=== PATIENT | female | born 1960 | race Caucasian/White ===

== ENCOUNTER 2019-12-18 10:15 | Outpatient (CLI) | payer BC, SELFPAY ==
--- NOTE | ~2019-12-18 | DEXA_ITS ---
Bone Density Report Name: Mariela Wise Age: 59 Sex: Female Ethnicity: White Date of : 1960 Indication: postmenopausal; prior fracture; hysterectomy; Referring Provider: Josiane, Arnol Sanchez Study: Bone densitometry was performed. Exam Date: December 18, 2019 Accession number: [id number] Bone Density: Region BMD T-score Z-score Classification AP Spine (L1-L4) 1.259 1.9 3.4 Normal Femoral Neck (Left) 0.821 -0.3 1.1 Normal Total Hip (Left) 1.200 2.1 3.1 Normal Total Hip Bilateral Avg 1.196 2.0 3.0 Normal Femoral Neck (Right) 0.911 0.6 1.9 Normal Total Hip (Right) 1.190 2.0 3.0 Normal World Health Organization criteria for BMD impression classify patients as: Normal (T-score at or above -1.0), Osteopenia (T-score between -1.0 and -2.5), or Osteoporosis (T-score at or below -2.5). 10-year Fracture Risk: FRAX not reported because: All T-scores for Spine Total, Hip Total, Femoral Neck at or above -1.0 Previous Exams: Region Exam Age BMD T-score BMD Change BMD Change Date g/cm2 vs Baseline vs Previous AP Spine(L1-L4) 12/18/2019 59 1.259 1.9 -0.031(-2.4%)* -0.031(-2.4%)* 06/11/2013 53 1.290 2.2 Total Hip(Left) 12/18/2019 59 1.200 2.1 -0.153(-11.3%) -0.153(-11.3%) 06/11/2013 53 1.353 3.4 Total Hip(Right) 12/18/2019 59 1.190 2.0 -0.141(-10.6%) -0.141(-10.6%) 06/11/2013 53 1.331 3.2 *Denotes significance at 95% confidence level, LSC for AP Spine = 0.022 g/cm2, LSC for Total Hip = 0.027 g/cm2 Clinical Information Provided by Patient: Has had a low trauma fracture Has used the following medications: Vitamin D Has the following medical conditions: Hysterectomy Patient maximum height was 67 Menopause Age: 52 No regular weight bearing exercise Drinks caffeinated beverages Onset of menses at age 11 Number of children 2 Impression: The patient has normal bone mass. The patient has risk factors, including: previous fracture. The BMD for the AP Spine(L1-L4) decreased, changing by -2.4% since the last DXA exam. The BMD for the Total Hip(Left) decreased, changing by -11.3% since the last DXA exam. The BMD for the Total Hip(Right) decreased, changing by -10.6% since the last DXA exam. Discussion: BONE DENSITY IS ABOVE THE MINIMUM DESIRABLE LEVEL AT ALL SKELETAL SITES TESTED. This patient?s bone mineral density is above the minimum desirable level (T-score -1.0 or better) at all sites measured. The patient should follow a healthful
--- NOTE | ~2019-12-18 | MM_ITS ---
EXAMINATION: MM screening qing BI w kandace HISTORY: Screening mammogram TECHNIQUE: Craniocaudal and mediolateral oblique 3-D tomosynthesis images were obtained and synthetic 2-D images were generated. CAD analysis was submitted and interpreted. COMPARISON: 03/14/2018, 03/05/2017, 06/02/2015 bilateral digital screening mammogram examinations BREAST PARENCHYMAL COMPOSITION: The breasts are almost entirely fatty. FINDINGS: There is no evidence of suspicious mass, calcification, or architectural distortion to sugg est malignancy in either breast. There has been no suspicious interval change. IMPRESSION: 1. No mammographic evidence of malignancy. 2. Recommend routine screening mammography in one year. BI-RADS Category 1: Negative Reviewed, dictated and finalized at location A.
== END 2019-12-18 10:16 | disposition home or self-care (01) ==
LOC: ANHIMG 10:17
PROVIDERS: PCP Internal Medicine; Visit Provider Internal Medicine
DX: Z12.31 Encounter for screening mammogram for malignant neoplasm of breast (principal); M81.0 Age-related osteoporosis without current pathological fracture
CPT/HCPCS: 77063; 77067; 77080

== ENCOUNTER 2021-06-30 10:18 | Outpatient (CLI) | payer BC, SELFPAY ==
--- NOTE | ~2021-06-30 | MM_ITS ---
EXAMINATION: MM screening qing BI w kandace HISTORY: Screening mammogram TECHNIQUE: Craniocaudal and mediolateral oblique 3-D tomosynthesis images were obtained and synthetic 2-D images were generated. CAD analysis was submitted and interpreted. COMPARISON: 12/18/2019, 03/14/2018, 03/05/2017 bilateral screening mammogram examinations BREAST PARENCHYMAL COMPOSITION: The breasts are almost entirely fatty. FINDINGS: There is no evidence of suspicious mass, calcification, or architectural distortion to sugg est malignancy in either breast. There has been no suspicious interval change. IMPRESSION: 1. No mammographic evidence of malignancy. 2. Recommend routine screening mammography in one year. BI-RADS Category 1: Negative Reviewed, dictated and finalized at location A.
== END 2021-06-30 10:19 | disposition home or self-care (01) ==
LOC: ANHIMG 10:20
PROVIDERS: PCP Internal Medicine; Visit Provider Internal Medicine
DX: Z12.31 Encounter for screening mammogram for malignant neoplasm of breast (principal)
CPT/HCPCS: 77063; 77067

== ENCOUNTER 2024-07-15 13:42 | Outpatient (CLI) | payer MEDICARE, SELFPAY ==
--- NOTE | ~2024-07-15 | DEXA_ITS ---
Bone Density Report Name: ANALIA WATTS Age: 64 Sex: Female Ethnicity: White Date of : 1960 Indication: postmenopausal; screening for osteoporosis; height loss; hysterectomy; Referring Provider: WESTON, BASIL Sanchez Study: Bone densitometry was performed. Exam Date: July 15, 2024 Accession number: [id number] Bone Density: Region BMD T-score Z-score Classification AP Spine(L2, L3, L4) 1.178 0.9 2.7 Normal World Health Organization criteria for BMD impression classify patients as: Normal (T-score at or above -1.0), Osteopenia (T-score between -1.0 and -2.5), or Osteoporosis (T-score at or below -2.5). Previous Exams: Region Exam Age BMD T-score BMD Change BMD Change Date g/cm2 vs Baseline vs Previous AP Spine (L2-L4) 07/15/2024 64 1.178 0.9 -0.081 (-6.5%) -0.081 (-6.5%) 12/18/2019 59 1.259 1.6 *Denotes significance at 95% confidence level, LSC for AP Spine = 0.022 g/cm2 # Denotes dissimilar scan types or analysis methods Clinical Information Provided by Patient: Has used the following medications: Vitamin D Has the following medical conditions: Hysterectomy Patient maximum height was 67 Menopause Age: 52 Drinks caffeinated beverages Onset of menses at age 11 Number of children 2 Impression: The patient has normal bone mass. No significant bone loss was observed. Discussion: LOW RISK OF FRACTURE; BONE DENSITY IS WELL ABOVE THE MINIMUM DESIRABLE LEVEL AND ABOVE AVERAGE FOR AGE AND SEX AT ALL SKELETAL SITES TESTED. This person's bone density is above expected limits for age and sex. This is rarely clinically significant, but should be pursued if there are significant musculoskeletal complaints. The patient should follow a healthful lifestyle (good nutrition with adequate calcium and vitamin D, and appropriate weight-bearing exercise). Follow-Up: Consider repeating this study in 5 years or sooner if there is some new clinical indication. Reported by: TRUONG on 07/15/2024 2:55:00 PM. Reviewed, dictated and finalized at location [facility]
--- NOTE | ~2024-07-15 | MM_ITS ---
EXAMINATION: MM screening qing BI w kandace HISTORY: Screening TECHNIQUE: Craniocaudal and mediolateral oblique 3-D tomosynthesis images were obtained and synthetic 2-D images were generated. CAD analysis was submitted and interpreted. COMPARISON: Comparison to multiple prior studies sequentially, with oldest reviewed study dated 06/02. BREAST PARENCHYMAL COMPOSITION: Not Dense. The breasts are almost entirely fatty. FINDINGS: There is no evidence of suspicious mass, calcification, or architectural distortion to sugg est malignancy in either breast. There has been no suspicious interval change. IMPRESSION: 1. No mammographic evidence of malignancy. 2. Recommend routine screening mammography in one year. BI-RADS Category 1: Negative Reviewed, dictated and finalized at location A.
--- OUTSIDE RECORDS SUMMARY | 2024-07-15 14:07 | XMS_ITS ---
Author Organization [facility] Address [address] [place] [address] Care Team Providers Care Assistant Professor Of Biochemistry Name Role Phone Arnol Joshua MD Primary Care Provider Arnol Carroll MD Unavailable [phone] Active Problems Problem Noted Date Diagnosed Date Spinal stenosis, lumbar arturo on, with neurogenic claudication 06/18/2024 Spondylolisthesis of lumbar region 06/18/2024 Metabolic dysfunction-associated steatohepatitis (MASH) 05/19/2024 Weight loss 04/17/2023 Pannus, abdominal 04/17/2023 H/O lipoma 04/17/2023 Metabolic syndrome 03/17/2023 Assessment & Plan (03/17/2023 11:50 AM SCHOOL LIBRARIAN): Diet and exercise as the the cornerstone of the treatment of insulin resistance/metabolic syndrome to prevention in to full blown diabetes was discussed with the patient. I encouraged the patient to continue working on low carb diet, probably incorporating 15 to 30 g of carbs with meals. Also continue daily aerobic and or resistant exercise Her blood pressure is well-controlled with current regimen noon Her hypertriglyceridemia also is adequately controlled now, with lipid profile showing mostly hypercholesterolemia for which the patient has been started on statin therapy with atorvastatin . Will check for hypercortisolism with a 1 mg dexamethasone suppression test The patient might benefit from GLP 1 analog for weight loss although I explained to the patient that this is not covered by insurance usually. I sent a prescription for Mounjaro Lipoma 02/20/2023 Assessment & Plan (02/20/2023 3:34 PM SCHOOL LIBRARIAN): Given the symptomatic nature we will set the patient up for resection. I have discussed with her doing this in the OR. She however would prefer to do this in the office. I have discussed with the patient that the more superior lesion that is more superficial and easily felt would not be a problem. My concern is for the deeper lesion as it is extending down to the muscle that there may be more bleeding were difficulty finding it with her being awake in the office. If this would be the case we may have to stop and still end up doing it in the OR. She is in understanding but still would like to try it in the office. We will set her up for this. Aftercare following left hip joint replacement s urgery 03/25/2022 Stage 3b chronic kidney disease 03/05/2022 High serum ferritin 02/26/2022 Morbid (severe) obesity due to excess calories 0 09/18/2021 Aftercare following right hip joint replacement surgery 08/07/2021 Preop exam for internal medicine 07/13/2021 Milia 06/13/2021 Lumbar facet arthropathy 10/18/2020 Sacroiliitis 10/18/2020 Insomnia secondary to chronic pain 10/18/2020 Chronic right-sided low back pain without sciati ca 10/18/2020 EDUAR (obstructive sleep apnea) 10/06/2020 Solar lentiginosis 07/26/2020 Ingrown hair 07/26/2020 Multiple benign melanocytic nevi of upper and lower extremities and trunk 07/26/2020 Neoplasm of uncertain behavior of skin Other seborrheic dermatitis 07/26/2020 Problems with swallowing and mastication 020 Overview (05/25/2019): Added automatically from request for surgery [id number] Problems with swallowing and mastication 020 Overview (05/19/2024): Added automatically from request for surgery [id number] Added automatically from request for surgery [id number] Hx of malignant melanoma 02/22/2019 Cervical radiculopathy 11/06/2018 Lumbar radiculopathy 11/06/2018 Discogenic low back pain 01/21/2018 DDD (degenerative disc disease), lumbar 01/22/20 18 It band syndrome, right 12/30/2017 Multiple nevi 08/05/2017 Warts 08/05/2017 Benign hypertension 07/10/2015 Overview (07/19/2016): BENIGN HYPERTENSION Assessment & Plan (07/03/2023 5:14 PM CDT): Recommend DASH diet, heart-healthy lifestyle, exercise. Discussed the risks of hypertension. Assessment & Plan (07/25/2020 9:50 AM CDT): Recommend DASH diet, heart-healthy lifestyle, exercise. Discussed the risks of hypertension. Assessment & Plan (08/13/2019 8:37 AM CDT): Recommend DASH diet, heart healthy lifestyle, exercise. Discussed the risks of hypertension. Benign hypertension 07/10/2015 Overview (05/19/2024): BENIGN HYPERTENSION BENIGN HYPERTENSION Last Assessment & Plan: Recommend DASH diet, heart-healthy lifestyle, exercise. Discussed the risks of hypertension. Actinic keratosis 01/31/2015 Personal history of other malignant neoplasm of skin 01/31/2015 Arthralgia of hip 09/14/2014 Overview (07/19/2016): Hip pain Arthralgia of hip 09/14/2014 Overview (05/19/2024): Hip pain Hip pain Personal history of malignant melanoma of skin 1 Multiple-type hyperlipidemia 08/28/2013 Overview (07/18/2016): MIXED HYPERLIPIDEMIA Anxiety state 08/28/2013 Overview (07/19/2016): ANXIETY STATE NOS Malignant melanoma of skin 08/28/2013 Overview (07/19/2016): MALIG MELANOMA SKIN NOS Anxiety state 08/28/2013 Overview (05/19/2024): ANXIETY STATE NOS ANXIETY STATE NOS Malignant melanoma of skin 08/28/2013 Overview (05/19/2024): MALIG MELANOMA SKIN NOS MALIG MELANOMA SKIN NOS Multiple-type hyperlipidemia 08/28/2013 Overview (05/19/2024): MIXED HYPERLIPIDEMIA MIXED HYPERLIPIDEMIA Menopause present 08/07/2012 Overview (07/19/2016): Menopause Spinal stenosis of lumbar region 01/27/2012 Overview (07/19/2016): Lumbar spinal stenosis Assessment & Plan (11/15/2016 4:12 PM CDT): Patient prefers no surgical intervention if not absolutely necessary. I recommend physical therapy to eval and treat. Follow up here in 6-8 weeks with absolutely any change in, worsening, or non improvement in condition. Further direction MRI results. Vitamin D deficiency 01/27/2012 Overview (07/19/2016): Hypovitaminosis D Irritable bowel syndrome 01/27/2012 Overview (07/19/2016): IRRITABLE BOWEL SYNDROME Irritable bowel syndrome 01/27/2012 Overview (05/19/2024): IRRITABLE BOWEL SYNDROME IRRITABLE BOWEL SYNDROME Vitamin D deficiency 01/27/2012 Overview (05/19/2024): Hypovitaminosis D Hypovitaminosis D Morbid obesity 12/04/2011 Rash and nonspecific skin eruption 07/31/2011 Current Treatment and Therapy Plans No current plan information found. Past Treatment and Therapy Plans No past plan information found. Lifetime Dose Tracking * Chemical Lifetime Dose Automatic Entry Manual Entr y Fluoro Time 1.273 minutes 1.273 minutes 0 minutes Air kerma at the reference point (Ka,r) 23.636 mGy 2 3.636 mGy 0 mGy Resolved Problems Problem Noted Date Diagnosed Date Resolved Date Primary osteoarthritis of left hip 02/21/2022 03/25/2022 Overview (02/21/2022): Added automatically from request for surgery [id number] Primary osteoarthritis of right hip 07/13/2021 08/07/2021 Overview (07/13/2021): Added automatically from request for surgery [id number] Primary osteoarthritis of hips, bilateral 06/18/2021 03/25/2022 Sleep apnea 01/10/2021 07/13/2021 Assessment & Plan (01/10/2021 10:21 AM CDT): Consider Weight loss, Oral appliance Consider Septoplasty and inferior turbinate reduction if no improvement with conservative therapies Acute non-recurrent maxillary sinusitis 04/25/2017 02/19/2018 Palpable mass of lower back 11/15/2016 02/19/2018 Assessment & Plan (11/15/2016 4:12 PM CDT): Proceed with MRI of the lumbar spine. Further direction pending test results. Patient should anticipate a call from me within 3 days of having testing completed. She is to contact the office if she has not heard from me within this time frame. Anxiety 09/14/2014 02/18/2017 Overview (07/19/2016): Anxiety Spinal stenosis 09/14/2014 02/18/2017 Overview (07/19/2016): Spinal stenosis Hypertension 09/14/2014 02/18/2017 Overview (07/19/2016): Hypertension
--- OUTSIDE RECORDS SUMMARY | 2024-07-15 14:07 | XMS_ITS | Encounter Summary ---
Author Organization [facility] Address [address] [place] [address] Phone Care Team Providers Care County Health Officer Name Role Phone Arnol Joshua MD Primary Care Provider Arnol Carroll MD Unavailable [phone] Anyi Jasso MA Unavailable [phone] Encounter Details Date Type Department Care Team (Latest Contact Info) Description 07/25/2020 Orders Only [facility] Scanning, Provider Social History Tobacco Use Types Packs/Day Years Used Date Smoking Tobacco: Never Smokeless Tobacco: Never Alcohol Use Standard Drinks/Week Comments No 0 (1 standard drink = 0.6 oz pur e alcohol) Rare PHQ-2 Answer Date Recorded PHQ-2 Total Score (If total score is 3 or more points, staff should administer the PHQ-9) 0 07/25/2020 Comments No Sex and Gender Information Value Date Recorded Sex Assigned at Not on file Legal Sex Female 5:22 PM REHABILITATION DIRECTOR Gender Identity Not on file Sexual Orientation Straight 05/19/2024 11 :57 AM REHABILITATION DIRECTOR documented as of this encounter Plan of Treatment Upcoming Encounters Date Type Department Care Team (Latest Contact Info) Description 07/21/2024 8:30 AM CDT Hospital Encounter [facility] Operating Room [address] [place] [address] Eddy Sanders MD [address] [facility] [address]6B[address] [place] [address] 07/21/2024 8:30 AM CDT Anesthesia Event [facility] Operating [address] [place] [id number] Sukh Calloway MD [address] [place] [address] 07/21/2024 8:30 AM CDT - 07/21/2024 12:05 PM CDT Surgery [facility] Operating Room [address] [place] [address] Eddy Sanders MD [address] [facility] [address] [place] [address] LUMBAR DECOMPRESSION/DISCECT RENETTA - INTERLAMINAR, Left-Sided L4-L5 Unilateral Laminotomy for Bilateral Decompression Scheduled Orders Name Type Priority Associated Diagnoses Orde r Schedule SCAN - CARDIOLOGY Cardiac Services O rdered: 07/25/2020 Scheduled Procedures Name Priority Associated Diagnoses Date/Ti me LUMBAR DECOMPRESSION/DISCECTOMY - INTERLAMINAR Spinal stenosis, lumbar region, with neurogenic claudication Spondylolisthesis of lumbar region 07/21/2024 8:30 AM CDT documented as of this encounter Visit Diagnoses Not on filedocumented in this encounter Care Teams County Health Officer Relationship Specialty Start Date End Date Arnol Joshua MD PCP - General 01/02/15 Arnol Carroll MD Surgeon Orthopedic Surgery 07/25/21 Anyi Jasso MA [address] [facility] [address] [place] [address] ACO Care Rides Supervisor 03/22/22 03/25/22 documented as of this encounter
--- OUTSIDE RECORDS SUMMARY | 2024-07-15 14:07 | XMS_ITS | Encounter Summary ---
Author Organization [facility] Healthcare Address [address] [place] [address] Care Team Providers Care Biochemistry Specialist Name Role Phone Arnol Joshua MD Primary Care Provider Arnol Carroll MD Unavailable [phone] Reason for Visit * Reason Onset Date Comments Medical Records Request 07/13/2024 Encounter Details Date Type Department Care Team (Late st Contact Info) Description 07/13/2024 Telephone [facility] Medical [facility] Primary Care at [address] [place] [address] Arnol Joshua MD [address] [place] [address] [address] [place] [address] Medical Records Request Social History Tobacco Use Types Packs/Day Years Used Date Smoking Tobacco: Never Smokeless Tobacco: Never Alcohol Use Standard Drinks/Week Comments No 0 (1 standard drink = 0.6 oz pur e alcohol) Rare AUDIT-C Answer Date Recorded Q1: How often do you have a drink containing alcohol? Never 07/09/2024 Q2: How many drinks containi ng alcohol do you have on a typical day when you are drinking? Patient does not drink Q3: How often do you have si x or more drinks on one occasion? Never 07/09/2024 PHQ-2 Answer Date Recorded PHQ-2 Total Score (If total score is 3 or more points, staff should administer the PHQ-9) 0 05/19/2024 Personal Safety Answer Date Recorded Have you ever been in or are you currently in a harmful physical or emotional relationship or is someone making you feel afraid or unsafe? Denies 07/09/2024 Comments No Sex and Gender Information Value Date Recorded Sex Assigned at Not on file Legal Sex Female 5:22 PM STAVE CUTTER Gender Identity Not on file Sexual Orientation Straight 05/19/2024 11 :57 AM STAVE CUTTER documented as of this encounter Miscellaneous Notes * Telephone Encounter - Dea Penaloza - 07/13/2024 3:56 PM CDT Orders faxed to provided number. * Telephone Encounter - Tiana Sutton CLT - 07/13/2024 3:33 PM CDT Per Michelle at [facility] pre-arrival, she needs copies of the orders for Screening mamm and Dexa. Sending to referrals. * Telephone Encounter - Eneida Chamorro - 07/13/2024 3:26 PM CDT Medical Records Request Request Type: Records Request Practice Will Complete What records are being requested:Bone Density and Screening Mammogram results Who will the records be sent to (if being sent to another doctor, list the doctor's name and specialty)? [facility] Radiology Date Needed: today if possible Delivery Method: Fax Fax number to use for return of records: [phone] Additional Comments/Concerns: Michelle with [facility] stated that they need these results as soon as possible. Patient has an appointment with them tomorrow. Does the message need to be routed? Yes-Action Needed documented in this encounter Plan of Treatment Upcoming Encounters Date Type Department Care Team (Latest Contact Info) Description 07/21/2024 8:30 AM CDT Hospital Encounter [facility] Operating Room [address] [place] [address] Eddy Sanders MD [address] [facility] [address]6B[address] [place] [address] 07/21/2024 8:30 AM CDT Anesthesia Event [facility] Operating Room [address] [place] [phone] Sukh Calloway MD [address] [place] [address] 07/21/2024 8:30 AM CDT - 07/21/2024 12:05 PM CDT Surgery [facility] Operating Room [address] [place] [phone] Eddy Sanders MD [address] [facility] /[address] [place] [address] LUMBAR DECOMPRESSION/DISCECT RENETTA - INTERLAMINAR, Left-Sided L4-L5 Unilateral Laminotomy for Bilateral Decompression Scheduled Procedures Name Priority Associated Diagnoses Date/Ti me LUMBAR DECOMPRESSION/DISCECTOMY - INTERLAMINAR Spinal stenosis, lumbar region, with neurogenic claudication Spondylolisthesis of lumbar region 07/21/2024 8:30 AM CDT documented as of this encounter Goals Goal Patient Goal Type Associated Problems Recent Progress Patient-Stated? Author BH-Pain Behavioral Health Improving( 2:38 PM CDT) Rehana Astudillo, RN Note: Patient will establish a comfort-function goal and identify the pain level that will allow the patient to perform desired activities and achieve an acceptable quality of life. documented as of this encounter Visit Diagnoses Not on filedocumented in this encounter Care Teams Biochemistry Specialist Relationship Specialty Start Date End Date Arnol Joshua MD PCP - General 01/02/15 Arnol Carroll MD Surgeon Orthopedic Surgery 07/25/21 documented as of this encounter
--- OUTSIDE RECORDS SUMMARY | 2024-07-15 14:07 | XMS_ITS | Encounter Summary ---
Author Organization [facility] Healthcare Address [address] [place] [address] Care Team Providers Care Carder Blankets Name Role Phone Arnol Joshua MD Primary Care Provider Arnol Carroll MD Unavailable [phone] Encounter Details Date Type Department Care Team (Late st Contact Info) Description 07/13/2024 Results Follow-Up [facility] Medical [facility] Primary Care at [place] [address] [facility] [address] [place] [address] Arnol Joshua MD [address] [place] [address] [address] [place], [place] [id number] Social History Tobacco Use Types Packs/Day Years [...] on file Legal Sex Female 5:22 PM HEARING CARE PRACTITIONER Gender Identity Not on file Sexual Orientation Straight 05/19/2024 11 :57 AM HEARING CARE PRACTITIONER documented as of this encounter Plan of Treatment Upcoming Encounters Date Type Department Care Team (Latest Contact Info) Description 07/21/2024 8:30 AM CDT Hospital Encounter [facility] Operating Room [address] [place] [address] Eddy Sanders MD [address] [facility] [place] [address] 07/21/2024 8:30 AM CDT Anesthesia Event [facility] Operating Room [address] [place] [address] Sukh Calloway MD [address] [place] [address] 07/21/2024 8:30 AM CDT - 07/21/2024 12:05 PM CDT Surgery [facility] Operating Room [address] [place] [address] Eddy Sanders MD [address] [place] [place] [address] LUMBAR DECOMPRESSION/DISCECT RENETTA - INTERLAMINAR, Left-Sided L4-L5 [...] on filedocumented in this encounter Care Teams Carder Blankets Relationship Specialty Start Date End Date Arnol Joshua MD PCP - General 01/02/15 Arnol Carroll MD Surgeon Orthopedic Surgery 07/25/21 documented as of this encounter
--- OUTSIDE RECORDS SUMMARY | 2024-07-15 14:07 | XMS_ITS | Continuity of Care Document ---
Author Organization [facility] Address [address] [place] [address] [place] [address] Phone Care Team Providers Care Agriculture Professor Name Role Phone Harris Ortiz MD Unavailable Unavailable Allergies, Adverse Reactions, Alerts Substance Reaction Status Criticality No Known Allergies Active No Inform ation Medications Medication Instructions Dosage Effective Dates (start - stop) Status Comments metoprolol succinate ER 50 mg tablet,extended release 24 hr take 1 tablet by oral route every day 50 MG - Active lorazepam 0.5 mg tablet take 2 tablet by oral route 3 times every day as needed 1 MG - Active Procedures Procedure Date Eye Exam, New Patient Advance Directives Directive Yes / No Effective Date File Name No Information Encounters Encounter Description Practice Location Reason(s) For Visit Diagnoses Date Provider Providers Copied on Encounter [facility], [address] [place] [address] [address], [place], [place], [id number], [place] tel:[phone] [facility] Professional floaters (chief complaint) Punctate keratitis of both eyesNuclear senile cataract of both eyesOcular histoplasmosis syndrome of left eyeBlepharocha lasis, rightBlepharoc halasis, left Oct-2 3-201 5 [facility] Iglesias. [address] [facility] [place], [place], [id number], [place]. tel:[phone] Referring Provider: Harris Felix, [address], [place], [address] . tel:[phone] Family History Family Member Type Diagnosis Age At Onset Father Problem (finding) diabetes mellitus type 2 Payers Payer name Insurance type Covered green party ID Bear gates(s) BCBS MD Out Of State [id number] Social History Type Description Quantity Date Captured Comments Alcohol Use Details No Caffeine Use Details Tobacco Use Status No Information Smoking Status Never smoker Non-Smoking Tobacco Use Details : No Details Available : No Details Available Sex Female Chief Complaint And Reason For Visit From encounter dated '02/03/2015 14:45'. floaters (chief complaint). Description: The 54 year old female presents for a complete exam. Patient c/o floaters OS (long time) and OU [place] alot. Reason For Referral Reason For Referral No Information History Of Present Illness Encounter Date Complaint History Of Prese nt Illness floaters The 54 year old female presents for a complete exam. Patient c/o floaters OS (long time) and OU [place] alot. Functional Status Date Functional Assessmen t No Information Instructions Date Instruction Additional Infor florentin Impression/Plan - Hx of HBP; well controlled. Discussed Blepharochalasis OU in detail with vision; not affecting vision. Discussed SPK OU and the use of ATs BID OU for treatment. Cataract diagnosis discussed in detail with pt. No treatment for cataracts currently recommended. The patient will monitor vision changes and contact us with any decrease in vision. 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 No treatment required. Will continue to monitor. RTC in 1 year for a complete exam. Follow up - RTC in 1 year for a complete exam. Assessments Type Assessment Date assessment Punctate keratitis of both eyes assessment Nuclear senile cataract of both eyes assessment Ocular histoplasmosis syndrome o f left eye assessment Blepharochalasis, right 015 assessment Blepharochalasis, left 15 Patient Care Teams Name Effective Dates (start - stop) Status Members No Information
--- OUTSIDE RECORDS SUMMARY | 2024-07-15 14:07 | XMS_ITS | Clinical Summary ---
Author Organization [facility] Address [address] [place] [address] Care Team Providers Care Counter Top Maker Name Role Phone Arnol Joshua MD Primary Care Provider Arnol Carroll MD Unavailable [phone] Allergies Active Allergy Reactions Criticality Noted Date Comments Cefazolin Vomiting Low 07/25/2021 Pt states ALL antibiotics make her nauseated when taken by mouth, unsure of IV antibiotics, states takes z-pack only when taking abx's orally at home. Nitrofurantoin Nausea & Vomiting Low 07/03/2023 Tetanus Toxoid, Adsorbed Unknown High Breathing problems. Was in ICU. Tetanus Vaccines And Toxoid Tissue Adhesive Itching Medium 04/17/2023 Dermabond Medications carvediloL (COREG) 6.25 mg tablet TAKE 1 TABLET BY MOUTH TWICE DAILY WITH MEALS 200 tablet 1 01/31/20 24 Active Additional Information Patient taking differently:6.25 mg oral2 times daily with meals (bkfst, dinner), Indications: hypertension, Informant: Self, Reported on 07/09/2024 amLODIPine (NORVASC) 2.5 mg tablet Take 1 tablet by mouth once daily 90 tablet 1 03/15/20 24 Active Additional Information Patient taking differently:2.5 mg oralEvery morning, Indications: hypertension, Informant: Self, Reported on 07/09/2024 benazepriL (LOTENSIN) 40 mg tablet Take 1 tablet by mouth once daily 90 tablet 1 05/25/19 25 Active Additional Information Patient taking differently:40 mg oralEvery morning, Indications: hypertension, Informant: Self, Reported on 07/09/2024 QUEtiapine (SEROquel) 25 mg tablet Take 1 tablet by mouth nightly 100 tablet 06/28/19 Active Additional Information Patient taking differently:25 mg oral Nightly,Indications: sleep, Informant: Self, Reported on 07/09/2024 triamterene-h ydroCHLOROthi azide 37.5-25 mg per tablet/capsul e TAKE 1 TABLET BY MOUTH ONCE DAILY TO LOWER BLOOD PRESSURE 90 tablet 1 07/02/19 Active Additional Information Patient taking differently: 0.5 tablet/capsule oral Every morning, Indications: HTN, Informant: Self, Reported on 07/09/2024 mupirocin (BACTROBAN) 2 % ointment Place small amount of ointment in each nostril with a q-tip twice daily for 5 days prior to surgery 22 g 07/02/19 Active Additional Information Patient taking differently: each nostril 2 times daily, Place small amount of ointment in each nostril with a q-tip twice daily for 5 days prior to surgeryDOS 07/21/24, Informant: Self, Reported on 07/09/2024 UNABLE TO FIND Take 1 each by mouth every morning Med Name: Neuropathy Support supplement Active MAGNESIUM ORALIndicatio ns:supplement Take 1 tablet/capsule by mouth every morning Magnesium Biglycinate Active QUEtiapine (SEROquel) 25 mg tablet Take 1 tablet (25 mg total) by mouth nightly 30 tablet 11 07/07/19 24 025 Discontinued triamterene-h ydroCHLOROthi azide 37.5-25 mg per tablet TAKE 1 TABLET BY MOUTH ONCE DAILY TO LOWER BLOOD PRESSURE 90 tablet 12/09/19 24 025 Discontinued atorvastatin (LIPITOR) 20 mg tablet TAKE 1 TABLET BY MOUTH ONCE DAILY TO LOWER BAD CHOLESTEROL 90 tablet 03/02/20 24 025 Discontinued atorvastatin (LIPITOR) 20 mg tablet TAKE 1 TABLET BY MOUTH ONCE DAILY TO LOWER BAD CHOLESTEROL 90 tablet 06/17/19 25 025 Discontinued(Th erapy completed) Active Problems Problem Noted Date Diagnosed Date Spinal stenosis, lumbar arturo on, with neurogenic claudication 06/18/2024 Spondylolisthesis of lumbar region 06/18/2024 Metabolic dysfunction-associated steatohepatitis (MASH) 05/19/2024 Weight loss 04/17/2023 Pannus, abdominal 04/17/2023 H/O lipoma 04/17/2023 Metabolic syndrome 03/17/2023 Assessment & Plan (03/17/2023 11:50 AM SEEING EYE DOG TEACHER): Diet and exercise as the the cornerstone [...] insurance usually. I sent a prescription for Kalli Lipoma 02/20/2023 Assessment & Plan (02/20/2023 3:34 PM SEEING EYE DOG TEACHER): Given the symptomatic nature we will set [...] (05/25/2019): Added automatically from request for surgery [id number] Problems with swallowing and mastication 020 Overview (05/19/2024): Added automatically from request for surgery [id number] Added automatically from request for surgery [id number] Hx of malignant melanoma 02/22/2019 Cervical radiculopathy [...] 12/04/2011 Rash and nonspecific skin eruption 07/31/2011 Resolved Problems Problem Noted Date Diagnosed Date Resolved Date Primary osteoarthritis of left hip 02/21/2022 03/25/2022 Overview (02/21/2022): Added automatically from request for surgery [id number] Primary osteoarthritis of right hip 07/13/2021 08/07/2021 Overview (07/13/2021): Added automatically from request for surgery [id number] Primary osteoarthritis of hips, bilateral 06/18/2021 03/25/2022 [...] stenosis Hypertension 09/14/2014 02/18/2017 Overview (07/19/2016): Hypertension Encounters Date Type Department Care Team Description 07/15/2024 Telephone [facility] Primary Care at [address] [place] [phone] Arnol Joshua MD Medical Question/Miscellaneous 07/13/2024 Orders Only [facility] Primary Care at [address] [phone] Arnol Joshua MD Screening mammogram for breast cancer (Primary Dx); Post-menopause 07/13/2024 Telephone [facility] Primary Care at [address] [place] [phone] Arnol Joshua MD Medical Records Request 07/13/2024 Results Follow-Up [facility] Primary Care at [address] [phone] Arnol Joshua MD 07/09/2024 11:00 AM CDT Clinical Support [facility] Orthopaedic Surgery [address] [place] [address] [place] [address] 07/09/2024 9:00 AM CDT Pre-Admission Testing [facility] Center for Preoperative Assessment and Planning [facility] ([facility]) [address] [place] [id number] Preoperative testing (Primary Dx); Spinal stenosis, lumbar region, with neurogenic claudication; Spondylolisthesis of lumbar region; Pain in other joint; Vitamin D deficiency 06/18/2024 10:30 AM SEEING EYE DOG TEACHER Office Visit [facility] Neurological Testing [address] [place] [address] [place] [address] Numbness and tingling in both hands (Primary Dx) 06/18/2024 9:40 AM SEEING EYE DOG TEACHER Procedure visit [facility] Neurological Testing [address] [place] [address] [place] [address] Numbness and tingling in both hands 06/15/2024 10:20 AM SEEING EYE DOG TEACHER Office Visit [facility] Orthopaedic Surgery [address] [place] [address] [place] [address] Eddy Sanders MD Lumbar radiculopathy (Primary Dx); Lumbar spine pain; Spinal stenosis of lumbar region, unspecified whether neurogenic claudication present; Spondylolisthesis of lumbar region 06/15/2024 9:58 AM SEEING EYE DOG TEACHER - 06/15/2024 11:59 PM SEEING EYE DOG TEACHER Hospital Encounter [facility] [address] [place] [address] Lumbar spine pain Discharge Disposition: Discharge to home or self care 05/25/2024 Telephone [facility] Primary Care at [address] [place] [phone] Arnol Joshua MD 05/24/2024 Orders Only [facility] Neuro Muscle [address] [facility] 6th [place] [address] Clint Andino MD Lumbar radiculopathy (Primary Dx); Spinal stenosis of lumbar region, unspecified whether neurogenic claudication present 05/21/2024 10:14 AM SEEING EYE DOG TEACHER - 05/21/2024 11:59 PM SEEING EYE DOG TEACHER Hospital Encounter [facility] Center [address] [place] [address] Lumbar radiculopathy Discharge Disposition: Discharge to home or self care 05/21/2024 Orders Only [facility] Health Information Management [address] [place] [address] Arnol Joshua MD 05/19/2024 12:55 PM SEEING EYE DOG TEACHER Lab [address] [address] Multiple-type hyperlipidemia 05/19/2024 11:45 AM SEEING EYE DOG TEACHER Office Visit [facility] [id number] [place] [address] [address], [place] [address] Bethanie Tavera MD Metabolic dysfunction-associated steatohepatitis (MASH) (Primary Dx); Multiple-type hyperlipidemia; Metabolic syndrome 05/18/2024 Telephone [facility] Primary Care at [address] [place] [phone] rAnol Joshua MD Medical Question/Miscellaneous 05/17/2024 Telephone [facility] Primary Care at [place] [address] [place] [address] Arnol Joshua MD 05/14/2024 7:03 AM SEEING EYE DOG TEACHER - 05/14/2024 11:59 PM SEEING EYE DOG TEACHER Hospital Encounter [facility] [address] [place] [address] RUQ abdominal pain Discharge Disposition: Discharge to home or self care 05/13/2024 3:30 PM SEEING EYE DOG TEACHER Office Visit [facility] Neuro Muscle [address] [facility] 6th [place] [address] Clint Andino MD Lumbar radiculopathy (Primary Dx); Numbness and tingling in both hands from Last 3 Months Immunizations Immunization Administration Dates Next Due Influenza, Quadrivalent, Spl it, Preservative Free, Intramuscular 03/10/2023 Influenza, Trivalent, Preser vative Free, Intramuscular 01/07/2024 Influenza, Unspecified 06/20/2022(Deferr ed: Patient Refused),06/08/2021(Deferred: Patient Refused),03/06/2021(Deferred: Patient Refused),01/12/2021(Deferred: Patient Refused),01/12/2021(Deferred: Patient Refused),01/12/2021(Deferred: Patient Refused),11/28/2020(Deferred: Patient Refused),02/25/2020(Deferred: Patient Refused),01/13/2020(Deferred: Patient Refused),01/13/2020(Deferred: Patient Refused),11/13/2019(Deferred: Patient Refused),09/20/2019(Deferred: Patient ill today),02/22/2019(Deferred: Patient Refused),01/12/2019,01/12/2019(Deferre d: Patient Refused),01/12/2019(Deferred: Patient Refused),01/12/2019(Deferred: Patient Refused),02/06/2018(Deferred: Patient Refused),01/12/2018(Deferred: Patient Refused),01/12/2018(Deferred: Patient Refused),01/12/2018(Deferred: Patient Refused) Daz 3d (J&J) SARS-CoV-2 Vaccination 06/17/2020 Moderna SARS-CoV-2 Monovalen t Vaccination (12+ YRS) 02/26/2021 Td, Unspecified 08/13/2019(Deferred: Allergy) Surgical History Surgery Date Site/Laterality Comments OTHER SURGICAL HISTORY Peptic Ulcer Disease: meds HYSTERECTOMY 1994 Hysterectomy FL FLUORO GUIDED INJECTION H IP LEFT 06/29/2021 Left FL FLUORO GUIDED INJECTION H IP LEFT 11/29/2021 Left HIP ARTHROPLASTY Right Medical History Medical History Date Comments Peptic ulcer 2007 Peptic Ulcer Dis ease 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 of melanoma surgically treated in the past.; Comments: [facility] 09/14/2014 - Hx Other Medical Three female loco rg. in 2012.; Comments: [facility] 09/14/2014 - Hx Other Medical Hemorrhoidectom y 1998.; Comments: [facility] 09/14/2014 - Hx Other Medical 2 foot surgerie s, last one 2004.; Comments: [facility] 09/14/2014 - Low back pain Chronic pain disorder Hypertension Sleep apnea PONV (postoperative nausea a nd vomiting) Motion sickness Arm vein blood clot, right right wrist Cancer (HCC) melanoma right a rm, shoulder blade Anxiety Family History Medical History Relation Name Comments Depression Brother 2 2 Depression; Diabetes Brother 2 2 Diabetes mellit us; Stroke Brother 2 2 Stroke; Depression Brother 5 Depression; Diabetes Father Diabetes mellit us; Hypertension Father Hypertension; Skin cancer Father Cancer, skin; Skin cancer Mother Cancer, skin; Other Other Family history of giant cell lymphoma, arthritis, heart disease, congestive heart disease, hypertension , diabetes and cancer.; Melanoma Sister Melanoma; Anesthesia problems Neg Hx Relation Name Status Comments Brother 1 Alive Brother 2 2 Alive Brother 3 2 Alive Brother 4 2 Alive Brother 5 Father Mother Other Sister Social History Tobacco Use Types Packs/Day Years Used Date Smoking Tobacco: Never Smokeless Tobacco: Never Tobacco Cessation:Counseling Given: Not Answered Alcohol Use Standard Drinks/Week Comments No 0 [...] on file Legal Sex Female 5:22 PM SEEING EYE DOG TEACHER Gender Identity Not on file Sexual Orientation Straight 05/19/2024 11 :57 AM SEEING EYE DOG TEACHER Obstetrics History Last Filed Vital Signs Vital Sign Reading Time Taken Comments Blood Pressure 134/72 07/09/2024 9:15 AM CDT Pulse 64 07/09/2024 9:10 AM CDT Temperature 36.6 C (97.8 F) 03/15/2024 9:03 AM SEEING EYE DOG TEACHER Respiratory Rate 18 05/19/2024 12:0 0 PM SEEING EYE DOG TEACHER Oxygen Saturation 96% 07/09/2024 9:10 AM CDT Inhaled Oxygen Concentration - - Weight 106.4 kg (234 lb 9.1 oz) 07/09/2024 9:10 AM CDT Height 165.1 cm (5' 5 ) 07/09/2024 9:10 AM CDT Body Mass Index 39.03 07/09/2024 9:10 AM CDT Plan of Treatment Upcoming Encounters Date Type Department Care Team (Latest Contact Info) Description 07/21/2024 8:30 AM CDT Hospital Encounter [facility] Operating Room [address] [place] [address] Eddy Sanders MD [address] [facility] [address] [place] [address] 07/21/2024 8:30 AM CDT Anesthesia Event [facility] Operating Room [address] [place] [address] Sukh Calloway MD [address] [place] [address] 07/21/2024 8:30 AM CDT - 07/21/2024 12:05 PM CDT Surgery [facility] Operating Room [address] [place] [address] Eddy Sanders MD [address] [facility] [address] [place] [address] LUMBAR DECOMPRESSION/DISCECT RENETTA - INTERLAMINAR, Left-Sided L4-L5 Unilateral Laminotomy for Bilateral Decompression Scheduled Procedures Name Priority Associated Diagnoses Date/Ti me LUMBAR DECOMPRESSION/DISCECTOMY - INTERLAMINAR Spinal stenosis, lumbar region, with neurogenic claudication Spondylolisthesis of lumbar region 07/21/2024 8:30 AM CDT Health Maintenance Due Date Last Done Comments DTaP/Tdap/Td Vaccine (1 - Tdap) 1970 Hepatitis B Screening 1977 Pneumococcal vaccine 65+ (1 of 1 - PCV) 2009 Zoster Vaccine (1 of 2) 2009 Osteoporosis Screening-Bone Density Scan 12/17/2021 12/18/2019 Breast Cancer Screening-Mammogram 06/30/2022 06/30/2021, 12/18/2019, 03/14/2018, Additional history exists Colon Cancer Screening-Colonoscopy 12/25/2022 12/25/2012, 12/25/2012 Covid-19 Vaccine (2023- 5 season) 2024 01/07/2024, 02/19/2023, 02/16/2022, Additional history exists Well Visit 65+ 03/15/2025 03/15/2024, 02/13, 03/05/2022, Additional history exists Depression Screening 05/19/2025 05/19/2024, 03/15/2024, 09/18/2023, Additional history exists Fall Risk Assessment 07/09/2025 07/09/2024, 05/19/2024, 03/15/2024, Additional history exists Colon Cancer Screening-CT Colonography Discontinued 12/25/2012, 12/25/2012 Colon Cancer Screening-DNA Stool Discontinued 12/26/19 13, 12/25/2012 Colon Cancer Screening-FIT Discontinued 12/25/2012, Colon Cancer Screening-Sigmoidoscopy Discontinued 12/25/2012, 12/25/2012 Hepatitis C Screening Completed 02/06/2017, 017 Influenza Vaccine Discontinued 01/07/2024, , 01/12/2019 Goals Goal Patient Goal Type Associated Problems Recent Progress Patient-Stated? Author BH-Pain Behavioral Health Improving( 2:38 PM CDT) Rehana Astudillo RN Note: Patient will establish a comfort-function goal and identify the pain level that will allow the patient to perform desired activities and achieve an acceptable quality of life. Medical Devices Implanted Type Area Sales Agent Trading Stamps Device Identifier Shelf Expiration Date Model / Serial / Lot [employer] [place] 6.5mm 35mm Acetabular Cancellous Screw Bone Sterile 1217-35-500 - Sn/A - [id number] Implanted:Qty: 1 on 07/24/2021 by Arnol Carroll MD at [facility] Right: Hip [employer] 06/12/2031 1217-35-500 / N/A / [id number] [employer] [place] 54mm 36mm Hip Neutral Liner Acetabular Altrx Sterile Latex Free [id number] - Sn/A - [id number] Implanted:Qty: 1 on 07/24/2021 by Arnol Carroll MD at [facility] Right: Hip [employer] 05/14/2026 [id number] / N/A / [id number] [employer] [place] 54mm Sector Hip Shell Acetabular Gription Sterile Latex Free [id number] - Sn/A - [id number] Implanted:Qty: 1 on 07/24/2021 by Arnol Carroll MD at [facility] Right: Hip [employer] 06/12/2031 [id number] / N/A / [id number] [employer] [id number] Actis Collared Hip 03/27 4 Standard Offset Stem Femoral - Sn/A - [id number] Implanted:Qty: 1 on 07/24/2021 by Arnol Carroll MD at [facility] Right: Hip [employer] 12/12/2030 [id number] / N/A / [id number] [employer] 1365-36-330 Articul/Doyle 36mm Cementless Hip +8.5mm 12/14 Taper Head Femoral Latex Free - Sn/A - [id number] Implanted:Qty: 1 on 07/24/2021 by Arnol Carroll MD at [facility] Right: Hip [employer] 03/13/2026 1365-36-330 / N/A / [id number] [employer] Articul/Doyle 36mm Cementless Hip +8.5mm /14 Taper Head Femoral Latex Free 1365-36-330 - [id number] Implanted:Qty: 1 on 03/11/2022 by Arnol Carroll MD at [facility] Left: Hip [employer] 01/11/2027 1365-36-330 / / [id number] [employer] [place] 6.5mm 35mm Acetabular Cancellous Screw Bone Sterile 1217-35-500 - [id number] Implanted:Qty: 1 on 03/11/2022 by Arnol Carroll MD at [facility] Left: Hip [employer] 11/12/2031 1217-35-500 / / [id number] [employer] [place] 54mm Sector Hip Shell Acetabular Gription Sterile Latex Free [id number] - [id number] Implanted:Qty: 1 on 03/11/2022 by Arnol Carroll MD at [facility] Left: Hip [employer] 09/12/2031 [id number] / / [id number] [employer] [place] 54mm 36mm Hip Neutral Liner Acetabular Altrx Sterile Latex Free [id number] - [id number] Implanted:Qty: 1 on 03/11/2022 by Arnol Carroll MD at [facility] Left: Hip [employer] 02/11/2027 [id number] / / [id number] [employer] Actis Collared Hip 03/27 4 Standard Offset Stem Femoral [id number] - [id number] Implanted:Qty: 1 on 03/11/2022 by Arnol Carroll MD at [facility] Left: Hip [employer] 11/12/2031 [id number] / / [id number] Procedures Procedure Name Priority Date/Time Associated Diagnosis Comments ABO/RH Routine 07/09/2024 10:35 AM CDT B ANTI-A1 LECTIN Routine 07/09/2024 10:35 AM CDT EGFR Routine 07/09/2024 10:35 AM CDT Spinal stenosis, lumbar region, with neurogenic claudication Spondylolisthesis of lumbar region DIFFERENTIAL AUTO Routine 07/09/2024 10:35 AM CDT Spinal stenosis, lumbar region, with neurogenic claudication Spondylolisthesis of lumbar region COMPREHENSIVE METABOLIC PANEL Routine 07/09/2024 10:35 AM CDT Spinal stenosis, lumbar region, with neurogenic claudication Spondylolisthesis of lumbar region CBC WITH AUTO DIFFERENTIAL Routine 07/09/2024 10:35 AM CDT Spinal stenosis, lumbar region, with neurogenic claudication Spondylolisthesis of lumbar region VITAMIN D 25 HYDROXY Routine 07/09/2024 10:35 AM CDT Spinal stenosis, lumbar region, with neurogenic claudication Spondylolisthesis of lumbar region Vitamin D deficiency PROTIME-INR Routine 07/09/2024 10:35 AM CDT Spinal stenosis, lumbar region, with neurogenic claudication Spondylolisthesis of lumbar region Pain in other joint APTT Routine 07/09/2024 10:35 AM CDT Spinal stenosis, lumbar region, with neurogenic claudication Spondylolisthesis of lumbar region Pain in other joint NICOTINE METABOLITE SCREEN, URINE Routine 07/09/2024 10:35 AM CDT Spinal stenosis, lumbar region, with neurogenic claudication Spondylolisthesis of lumbar region TYPE AND SCREEN 14 DAY Routine 07/09/2024 10:35 AM CDT Preoperative testing URINALYSIS AND REFLEX TO MICROSCOPIC AND CULTURE Routine 07/09/2024 10:35 AM CDT Spinal stenosis, lumbar region, with neurogenic claudication Spondylolisthesis of lumbar region XR SPINE LUMBAR ROUTINE Schedule Routine, Read Routine (OP Routine) 06/15/2024 10:10 AM SEEING EYE DOG TEACHER Lumbar spine pain MRI LUMBAR SPINE WO CONTRAST Schedule Routine, Read Routine (OP Routine) 05/21/2024 11:01 AM SEEING EYE DOG TEACHER Lumbar radiculopathy SCAN - RADIOLOGY/IMAGING 05/21/2024 LIPOPROTEIN A (LPA) Routine 05/19/2024 1 :03 PM SEEING EYE DOG TEACHER Multiple-type hyperlipidemia CRP, HIGH SENSITIVITY Routine 05/19/2024 1:03 PM SEEING EYE DOG TEACHER Multiple-type hyperlipidemia US RUQ Schedule Routine, Read Routine (OP Routine) 05/14/2024 7:47 AM SEEING EYE DOG TEACHER RUQ abdominal pain SCREENING MAMMOGRAM BILATERAL W NORMAN Schedule Routine, Read Routine (OP Routine) 06/30/2021 Screening mammogram, encounter for DEXA AXIAL AND FOREARM BONE DENSITY SCAN Schedule Routine, Read Routine (OP Routine) 12/18/2019 HEPATITIS C AB REFLEX RNA QUANT PCR Routine 02/06/2017 9:35 AM CDT COLONOSCOPY 12/25/2012 12:00 AM CDT from Last 3 Months or Most Recently Relevant to Health Maintenance Results * TYPE AND SCREEN 14 DAY (07/09/2024 10:35 AM CDT) Venkat, indirect Negative ABO Rh SEE COMMENT, NO CHARGE SEE COMMENT, NO CHARGE [facility] Comment:This test has been i nvalidated Blood 07/09/2024 10:3 5 AM CDT 07/09/2024 10:58 AM CDT Narrative [facility] - 07/14/2024 4:40 PM CDT Is this test being ordered in advance for a procedure?->Yes Expected date of procedure:->08/20/24 Has the patient been transfused in the past 3 months?->No Has the patient been in the past 3 months?->No us Sukh Calloway MD LAB BLOOD BANK TEST O RDERABLES Final Result [facility] Department [place] [address] * (ABNORMAL) eGFR (07/09/2024 10:35 AM CDT) eGFR 53(L) >=60 mL/min/1. 73 m2 Comment: Interpretive Data Reference Interval Normal >/= 90 mL/min/1.73m2 Mildly decreased* 60 - 89 mL/min/1.73m2 Mildly to moderately decreased 45 - 59 mL/min/1.73m2 Moderately to severely decreased 30 - 44 mL/min/1.73m2 Severely decreased 15 - 29 mL/min/1.73m2 Kidney Failure < 15 mL/min/1.73m2 *Relative to young adult level Estimated glomerular filtration rate is determined by the 2020 CKD-EPI equation recommended by the National Kidney [employer] (A Unifying Approach to GFR Estimation: Recommendations of the NKF-ASK Task Force on Reassessing the Inclusion of Race in Diagnosing Kidney Disease, JASN 202). The CKD-EPI equation should not be used for patients with unstable renal function and has not been validated in children and those over 70. Current interpretive data was last reviewed 2021. Blood 07/09/2024 10:3 5 AM CDT 07/09/2024 10:50 AM CDT us Eddy Sanders MD LAB BLOOD ORDERABLES Fi nal Result [facility] [place] [address] * Differential, auto (07/09/2024 10:35 AM CDT) Neutrophil abs 4.3 1.5 - 6.5 K/cumm Imm gran abs 0.0 0.0 - 0.1 K/cumm [facility] Lymphocyte abs 1.9 0.8 - 3.3 K/cumm [facility] Monocyte abs 0.4 0.2 - 0.8 K/cumm [facility] Eosinophil abs 0.3 0.0 - 0.5 K/cumm [facility] Basophil abs 0.1 0.0 - 0.1 K/cumm [facility] Neutrophil pct 62.4 % [facility] Comment: Interpretive Data Percent cell count reference ranges are not reported, since discordance with absolute values may lead to misinterpretation of CBC data. Current Interpretive Data was last revised on 2017. Imm gran pct 0.6 % [facility] [facility] Comment: Interpretive Data Percent cell count reference ranges are not reported, since discordance with absolute values may lead to misinterpretation of CBC data. Current Interpretive Data was last revised on 2017. Lymphocyte pct 26.5 % [facility] Comment: Interpretive Data Percent cell count reference ranges are not reported, since discordance with absolute values may lead to misinterpretation of CBC data. Current Interpretive Data was last revised on 2017. Monocyte pct 5.0 % [facility] Comment: Interpretive Data Percent cell count reference ranges are not reported, since discordance with absolute values may lead to misinterpretation of CBC data. Current Interpretive Data was last revised on 2017. Eosinophil pct 4.4 % [facility] Comment: Interpretive Data Percent cell count reference ranges are not reported, since discordance with absolute values may lead to misinterpretation of CBC data. Current Interpretive Data was last revised on 2017. Basophil pct 1.1 % [facility] Comment: Interpretive Data Percent cell count reference ranges are not reported, since discordance with absolute values may lead to misinterpretation of CBC data. Current Interpretive Data was last revised on 2017. Blood 07/09/2024 10:3 5 AM CDT 07/09/2024 10:50 AM CDT Eddy Sanders MD LAB BLOOD ORDERABLES Fi nal Result Performing Organization Address [facility] [place] [address] * B Anti-A1 Lectin (07/09/2024 10:35 AM CDT) RBC phenotyping, A1 lectin ag Negative Blood 07/09/2024 10:3 5 AM CDT 07/09/2024 10:58 AM CDT Eddy Sanders MD LAB BLOOD ORDERABLES Fi nal Result Performing Organization Address [facility] [place] [address] * Urinalysis reflex to microscopic and culture Urine, clean voided (07/09/2024 10:35 AM CDT) Color, ur Straw Yellow Clarity, ur Clear Clear [facility] Specific gravity, ur 1.024 1.003 - 1.030 [facility] pH, urine 6.0 [facility] Comment: Interpretive Data U rine pH is affected by diet, medications, systemic acid-base disturbances, and renal tubular function. pH may affect urinary stone formation. For example, urine pH below 6.0 may help reduce the tendency for calcium phosphate stones and pH greater than 6.0 may reduce the tendency for uric acid stone formation. Source: [facility] [employer] Current Interpretive Data was last revised on 2017 Protein, ur ql Negative Negative [facility] Glucose, ur ql Negative Negative [facility] Ketones, ur Negative Negative [facility] Bilirubin, ur Negative Negative [facility] Blood, ur Negative Negative [facility] Urobilinogen, ur <2.0 <2.0 mg/dL [facility] Nitrite, ur Negative Negative [facility] Leukocyte esterase, ur Negative Negative [facility] UA reflex comment Reflex conditions for microscopic UA and culture not met. [facility] Urine, clean voided 07/09/2024 10:35 AM CDT 07/09/2024 10:47 AM CDT us Eddy Sanders MD LAB MICROBIOLOGY - GENE RAL ORDERABLES Final Result [facility] [place] [address] * CBC with auto differential (07/09/2024 10:35 AM CDT) WBC 7.0 3.8 - 9.9 K/cumm Hgb 13.2 11.9 - 15.5 g/dL [facility] Hct 40.1 35.6 - 45.5 % [facility] Plt 243 150 - 400 K/cumm [facility] MPV 9.7 9.1 - 12.3 fL [facility] RBC 4.55 3.90 - 5.20 M/cumm [facility] MCV 88.1 81.3 - 96.4 fL [facility] MCH 29.0 27.1 - 33.3 pg [facility] MCHC 32.9 32.3 - 35.7 g/dL [facility] RDW CV 12.2 11.1 - 14.9 % [facility] RDW SD 39.4 35.7 - 48.1 fL [facility] NRBC abs 0.00 0.00 - 0.01 K/cumm [facility] Blood 07/09/2024 10:3 5 AM CDT 07/09/2024 10:50 AM CDT us Eddy Sanders MD LAB BLOOD ORDERABLES Fi nal Result [facility] Department [place] [address] * ABO/Rh (07/09/2024 10:35 AM CDT) ABO Rh Asub Positive Comment:This result is cindy ed from APOS result Blood 07/09/2024 10:3 5 AM CDT 07/14/2024 3:39 PM CDT Eddy Sanders MD LAB BLOOD BANK TEST ORD ERABLES Final Result [facility] [employer] [place] [address] * Nicotine metabolite screen, urine (07/09/2024 10:35 AM CDT) Pathologist [facility] Nicotine, ur <5.0 <5.0 ng/mL [facility] Lab Cotinine, ur <5.0 <5.0 ng/mL [facility] Anabasine ur <2.0 <2.0 ng/mL [facility] Comment: ADDITIONAL INFORMATION This test was developed and its performance characteristics determined by [facility] in a manner consistent with CLIA requirements. This test has not been cleared or approved by the U.S. Food and Drug Administration. Test Performed by: [facility] [place] [address] Gasoline Tester: Kilo Lim Ph.D.; CLIA# [id number] Nornicotine, ur <2.0 <2.0 ng/mL [facility] Urine 07/09/2024 10:3 5 AM CDT 07/09/2024 11:16 AM CDT Eddy Sanders MD LAB URINE ORDERABLES Fi nal Result [facility] [employer] [place] [address] [facility] * Vitamin D 25 hydroxy (07/09/2024 10:35 AM CDT) Vitamin D 25-OH 43 30 - 80 ng/mL Blood 07/09/2024 10:3 5 AM CDT 07/09/2024 10:50 AM CDT Eddy Sanders MD LAB BLOOD ORDERABLES Fi nal Result Performing Organization Address [facility] de Phone Number [facility] [employer] [place] [address] * aPTT (07/09/2024 10:35 AM CDT) Pathologist [facility] aPTT 37 28 - 38 sec Comment: Interpretive Data Heparin therapeutic range: 66.0 - 100.0 seconds. Range based on correlation with therapeutic heparin activity range of 0.3 - 0.7 Units/mL. Current interpretive data was last revised on 2023. Blood 07/09/2024 10:3 5 AM CDT 07/09/2024 10:51 AM CDT Eddy Sanders MD LAB BLOOD ORDERABLES Fi nal Result Performing Organization Address [facility] de Phone Number [facility] [employer] [place] [address] * Protime-INR (07/09/2024 10:35 AM CDT) Pathologist [facility] PT 11.0 9.7 - 13.0 sec INR 1.02 0.90 - 1.20 [facility] Comment: Interpretive data Oral anticoagulant therapeutic ranges: Venous thromboembolism prophylaxis or treatment: 2.0-3.0 CARDIOLOGY Standard range: 2.0-3.0 High-intensity range: 2.5-3.5 Refer to indication-specific guidelines for appropriate target ranges for prosthetic heart valve replacement. Current interpretive data was last revised on 2019. Blood 07/09/2024 10:3 5 AM CDT 07/09/2024 10:51 AM CDT us Eddy Sanders MD LAB BLOOD ORDERABLES Fi nal Result [facility] Department [place] [address] * (ABNORMAL) Comprehensive metabolic panel (07/09/2024 10:35 AM CDT) Pathologist [facility] Sodium 142 135 - 145 mmol/L Potassium, pl 4.8 3.3 - 4.9 mmol/L [facility] Comment:Hemolyzed; Potassium value may be falsely elevated by as much as 0.3-0.5 mmol/L. Suggest redraw and reanalysis. Chloride 106 97 - 110 mmol/L [facility] CO2 28 22 - 32 mmol/L [facility] Anion gap 8 2 - 15 mmol/L [facility] BUN 26(H) 6 - 25 mg/dL [facility] Creatinine 1.15(H) 0.60 - 1.10 mg/dL [facility] Glucose 100 70 - 199 mg/dL [facility] Comment: Interpretive Data Fasting glucose >/= 126 mg/dl is diagnostic for diabetes. Fasting is defined as no caloric intake for at least 8 hours. Fasting glucose between 100 mg/dl to 125 mg/dl is diagnostic of prediabetes. In a patient with classic symptoms of hyperglycemia or hyperglycemic crisis, a random glucose >/= 200 mg/dl is diagnostic for diabetes. In the absence of unequivocal hyperglycemia, results should be confirmed by repeat testing. The classification and Diagnosis of Diabetes Diabetes Care 202; 46: S19-S40. Current interpretive data was last revised 2022. Calcium 10.3 8.5 - 10.3 mg/dL [facility] Bilirubin, total 0.2 0.1 - 1.2 mg/dL [facility] Protein, pl 7.4 6.5 - 8.5 g/dL [facility] Albumin 4.5 3.5 - 5.0 g/dL [facility] Alk phos 83 40 - 130 Units/L [facility] ALT 21 7 - 45 Units/L [facility] AST 26 10 - 45 Units/L [facility] Comment:Hemolyzed; result ma y be falsely elevated Blood 07/09/2024 10:3 5 AM CDT 07/09/2024 10:50 AM CDT us Eddy Sanders MD LAB BLOOD ORDERABLES Fi nal Result [facility] Department [place] [address] * XR Spine Lumbar 4 or More Views (06/15/2024 10:10 AM SEEING EYE DOG TEACHER) Anatomical Region Laterality Modality L-spine N/A Computed Radiogr aphy 06/15/2024 10:2 4 AM SEEING EYE DOG TEACHER Impressions 06/15/2024 10:24 AM SEEING EYE DOG TEACHER 1. Mild multilevel lumbar degenerative disc disease with adynamic grade 1 anterolisthesis of L4 on L5. Electronically signed by: Tian Barrios D.O. Narrative 06/15/2024 10:24 AM SEEING EYE DOG TEACHER EXAMINATION: XR SPINE LUMBAR 4 OR MORE VIEWS HISTORY: back pain FINDINGS: Comparison is made to 01/12/2018 radiograph. Mild multilevel lumbar degenerative disc disease. Vertebral body heights are maintained. Adynamic grade 1 anterolisthesis of L4 on L5. Mild to moderate multilevel lumbar facet arthropathy. Partly imaged bilateral total hip arthroplasties. Procedure Note Tian Barrios, DO - 06/15/2024 EXAMINATION: XR SPINE LUMBAR 4 OR MORE VIEWS HISTORY: back pain FINDINGS: Comparison is made to 01/12/2018 radiograph. Mild multilevel lumbar degenerative disc disease. Vertebral body heights are maintained. Adynamic grade 1 anterolisthesis of L4 on L5. Mild to moderate multilevel lumbar facet arthropathy. Partly imaged bilateral total hip arthroplasties. IMPRESSION: 1. Mild multilevel lumbar degenerative disc disease with adynamic grade 1 anterolisthesis of L4 on L5. Electronically signed by: Tian Barrios D.O. Eddy Sanders MD IMG XR PROCEDURES Final Result * MRI Lumbar Spine WO Contrast (05/21/2024 11:01 AM SEEING EYE DOG TEACHER) Anatomical Region Laterality Modality Spine N/A Magnetic Resonan ce 05/21/2024 1:16 PM SEEING EYE DOG TEACHER Narrative 05/21/2024 1:24 PM SEEING EYE DOG TEACHER EXAM DESCRIPTION: MRI LUMBAR SPINE WO CONTRAST REASON FOR STUDY: Low back pain, symptoms persist with > 6 wks treatment Lumbar radiculopathy. Chronic low back pain starting around 9 yrs ago, worsening in the last yr. Pt has had injections and PT. Pt states she experiences numbness from lower back to knee in L leg. Contrast refused due to back pain. TECHNIQUE: Sagittal and Axial imaging includes T1, T2, STIR sequences. COMPARISON: Lumbar spine MRI dated 11/22/2019, 11/29/2016 and 07/27/2014. FINDINGS: SEGMENTATION: 5 rzs-eom-sbkymtc lumbar type vertebral bodies. ALIGNMENT: Minimal anterolisthesis of L4 on L5 VERTEBRAE: No acute compression fracture in the lumbar spine. Multilevel endplate degenerative changes and marginal spur formation. The L3-L4 through L5-S1 facet joint variable extent STIR hyperintense signal can be seen with synovitis in the proper clinical scenario. Rounded T1 and T2 hyperintense foci including in the L2 vertebral body in keeping with intraosseous hemangioma. Additional T1 and T2 hypointense signal including in the L1 vertebral body (series 5, image 11) and L2 vertebral body (series 3, image 11) are indeterminate but present on the previous MRI dated 11/19/2016. DISC HEIGHT: Multilevel disc desiccation and height loss. HARDWARE: None in the spine. CORD/CAUDA: Conus medullaris terminates at L1-L2. LOWER THORACIC: Incompletely imaged. Degenerative changes without high-grade spinal canal stenosis. Portion of the disc, thickened ligamentum flavum and facet arthropathy contributes to left neural foraminal narrowing at T11-T12. INDIVIDUAL DISC LEVELS: L1-L2: No significant disc bulge, spinal canal or neural foraminal narrowing. There is bilateral facet arthropathy. L2-L3: Disc bulge in a right neural foramen small disc protrusion with annular fissure. Thickened ligamentum flavum and facet arthropathy. No significant spinal canal or left neural foraminal narrowing. Minimal inferior right neural foraminal narrowing. L3-L4: Disc bulge and superimposed left neural foraminal disc protrusion. Thickened ligamentum flavum with bilateral facet arthropathy. No significant spinal canal or right neural foraminal narrowing. Mild left neural foraminal narrowing. L4-L5: Disc bulge with thickened ligamentum flavum and facet arthropathy. Left dorsal lateral spinal canal 2 x 4 x 2 mm T2 hyperintense signal in keeping with synovial cyst. Constellation of findings with moderate spinal canal stenosis and abys-pyhchuh-ujuk-right lateral recess effacement. Ihse-ry-jorixrcf neural foraminal narrowing, jgen-mlvrziu-zgec-right. L5-S1: Disc bulge and superimposed central/left subarticular through left neural foraminal disc protrusion. Bilateral facet arthropathy. No significant spinal canal stenosis. Left lateral recess effacement with disc abutting the descending left S1 nerve root. Minor proximal left and no significant right neural foraminal narrowing. IMPRESSION: 1. Yohr-sf-rmhtsely lumbar disc degeneration with thickened ligamentum flavum and more advanced facet arthropathy as described. The spinal canal narrowing is most noticeable at L4-L5, slightly worsened when compared to the previous lumbar spine MRI dated 11/22/2019. 2. The neural foraminal narrowing is also most noticeable at L4-L5. 3. Additional findings as above. THIS IS AN ELECTRONICALLY VERIFIED FINAL REPORT 05/21/2024 1:24 PM - Electronically signed by Richardson Galan D.O. AP: AP Report ID: [id number] Reading Location: [place] [id number] Procedure Note Richardson Galan, DO - 05/21/2024 EXAM DESCRIPTION: MRI LUMBAR SPINE WO CONTRAST REASON FOR STUDY: Low back pain, symptoms persist with > 6 wks treatment Lumbar radiculopathy. Chronic low back pain starting around 9 yrs ago, worsening in the last yr. Pt has had injections and PT. Pt states she experiences numbness from lower back to knee in L leg. Contrast refuseddue to back pain. TECHNIQUE: Sagittal and Axial imaging includes T1, T2, STIR sequences. COMPARISON: Lumbar spine MRI dated 11/22/2019, 11/29/2016 and07/27/2014. FINDINGS: SEGMENTATION: 5 wqh-dno-sthlwpg lumbar type vertebral bodies. ALIGNMENT: Minimal anterolisthesis of L4 on L5 VERTEBRAE: No acute compression fracture in the lumbar spine.Multilevel endplate degenerative changes and marginal spur formation. The L3-N4fdxddex L5-S1 facet joint variable extent STIR hyperintense signal can be seenwith synovitis in the proper clinical scenario. Rounded T1 and T2 hyperintense foci including in the L2 vertebral body in keeping with intraosseous hemangioma. Additional T1 and T2 hypointense signal including in the L1 vertebral body (series 5, image 11) and L2 vertebral body (series 3, image11) are indeterminate but present on the previous MRI dated 11/19/2016. DISC HEIGHT: Multilevel disc desiccation and height loss. HARDWARE: None in the spine. CORD/CAUDA: Conus medullaris terminates at L1-L2. LOWER THORACIC: Incompletely imaged. Degenerative changes without high-grade spinal canal stenosis. Portion of the disc, thickenedligamentum flavum and facet arthropathy contributes to left neural foraminalnarrowing at T11-T12. INDIVIDUAL DISC LEVELS: L1-L2: No significant disc bulge, spinal canal or neural foraminalnarrowing. There is bilateral facet arthropathy. L2-L3: Disc bulge in a right neural foramen small disc protrusion withannular fissure. Thickened ligamentum flavum and facet arthropathy. Nosignificant spinal canal or left neural foraminal narrowing. Minimal inferior right neural foraminal narrowing. L3-L4: Disc bulge and superimposed left neural foraminal disc protrusion. Thickened ligamentum flavum with bilateral facet arthropathy. Nosignificant spinal canal or right neural foraminal narrowing. Mild left neuralforaminal narrowing. L4-L5: Disc bulge with thickened ligamentum flavum and facet arthropathy. Left dorsal lateral spinal canal 2 x 4 x 2 mm T2 hyperintense signal in keeping with synovial cyst. Constellation of findings with moderatespinal canal stenosis and lgha-ckmbsor-xzjh-right lateral recess effacement. Zodf-kz-mkenonqu neural foraminal narrowing, vpnk-qnpvsuo-zzzh-right. L5-S1: Disc bulge and superimposed central/left subarticular through left neural foraminal disc protrusion. Bilateral facet arthropathy. No significant spinal canal stenosis. Left lateral recess effacement withdisc abutting the descending left S1 nerve root. Minor proximal left and no significant right neural foraminal narrowing. IMPRESSION: 1. Etcd-df-mkcjxrog lumbar disc degeneration with thickened ligamentum flavum and more advanced facet arthropathy as described. The spinal canal narrowing is most noticeable at L4-L5, slightly worsened when compared tothe previous lumbar spine MRI dated 11/22/2019. 2. The neural foraminal narrowing is also most noticeable at L4-L5. 3. Additional findings as above. THIS IS AN ELECTRONICALLY VERIFIED FINAL REPORT 05/21/2024 1:24 PM - Electronically signed by Richardson Galan D.O. AP: AP Report ID: [id number] Reading Location: [id number] Clint Andino MD IMG MRI PROCEDURES Final Result * SCAN - RADIOLOGY/IMAGING (05/21/2024) Anatomical Region Laterality Modality Other Arnol Joshua MD Final R esult * Lipoprotein a (LPa) (05/19/2024 1:03 PM SEEING EYE DOG TEACHER) Lipoprotein A 29 <75 nmol/L [place] [facility] Comment: ADDITIONAL INFORMATION Please notice that Lp(a) values are reported in molar units (nmol/L). These units are recommended by professional society guidelines and expert opinion statements. Measured results and risk thresholds are higher than those generated using mass units (mg/dL). Cardiovascular risk increases starting at 75 nmol/L. Lp(a) >=125 nmol/L is considered a risk enhancing factor by the [place] [employer]. This test has been modified from the feeder catcher's instructions. Its performance characteristics were determined by [facility] in a manner consistent with CLIA requirements. This test has not been cleared or approved by the U.S. Food and Drug Administration. Test Performed by: [address] [address] Gasoline Tester: Kilo Lim Ph.D.; CLIA# [id number] Blood 05/19/2024 1:03 PM SEEING EYE DOG TEACHER 05/19/2024 7:05 PM SEEING EYE DOG TEACHER us Bethanie Tavera MD LAB BLOOD ORDERABLES Final Resul t Performing Organization Address [facility] de Phone Number [facility] [address] [address] Department [employer] [place] [address] [facility] * CRP (cardiac risk) (05/19/2024 1:03 PM SEEING EYE DOG TEACHER) hsCRP 6.02 mg/L Comment: Interpretive data Adult only - values greater than or equal to 10 mg/L are consistent with infection or inflammation. Individuals with evidence of active infection, systemic inflammatory processes, or trauma should not be tested until these conditions have abated. When using HS CRP to assess cardiovascular risk, two measurements should be taken, two weeks apart (averaging results). The CDC/AHA recommended the following HS CRP cut off points (tertiles) for CVD assessment. Adult low risk <1.0 mg/L Average risk 1.0 - 3.0 mg/L High Risk >3.0 mg/L Current interpretive data was last revised on 2017. Testing performed by: [facility], [address] [facility], [place]., [address] Blood 05/19/2024 1:03 PM SEEING EYE DOG TEACHER 05/20/2024 10:18 AM SEEING EYE DOG TEACHER us Bethanie Tavera MD LAB BLOOD ORDERABLES Final Resul t Performing Organization Address [facility] de Phone Number [facility] [place] [address] [address] Department [place] [address] * US RUQ (05/14/2024 7:47 AM SEEING EYE DOG TEACHER) Anatomical Region Laterality Modality Abdomen N/A Ultrasound 05/16/2024 3:29 PM SEEING EYE DOG TEACHER Narrative 05/16/2024 3:31 PM SEEING EYE DOG TEACHER EXAM DESCRIPTION: US RUQ REASON FOR STUDY: RUQ abdominal pain TECHNIQUE: Ultrasound of the right upper quadrant of the abdomen was performed with grayscale and color Doppler. COMPARISON: CT abdomen and pelvis from 02/02/2023. FINDINGS: PANCREAS: The operations supervisor 2nd shift describes the pancreas in real-time is being hyperechoic an heterogeneous although this is a difficult assessment to make with ultrasound. No specific mass or fluid collection is seen. LIVER: The liver is increased in echogenicity. Liver measures 17 cm. No focal hepatic lesions are seen. Antegrade direction of flow shown in the main portal vein. GALLBLADDER: No echogenic gallstones, gallbladder wall thickening, or pericholecystic fluid. No positive sonographic Priest's sign reported. BILIARY: There is no intrahepatic biliary ductal dilatation. The common bile duct measures 0.4 cm in diameter. RIGHT KIDNEY: Right kidney is 11.6 cm in length. There is no hydronephrosis. The echogenicity is normal. OTHER: No other significant finding. IMPRESSION: No evidence of an acute abnormality. Hepatic steatosis. Taste Tester describes the pancreas as being hyperechoic and heterogeneous although this is a difficult assessment with ultrasound. No specific mass or fluid collection is seen. If there is high clinical suspicion for pathology, consider CT imaging. THIS IS AN ELECTRONICALLY VERIFIED FINAL REPORT 05/16/2024 3:31 PM - Electronically signed by Sukumar Miller M.D. CH: [facility] Report ID: [id number] Reading Location: [id number] Procedure Note Sukumar Miller Jr., MD - 05/16/2024 EXAM DESCRIPTION: US RUQ REASON FOR STUDY: RUQ abdominal pain TECHNIQUE: Ultrasound of the right upper quadrant of the abdomen wasperformed with grayscale and color Doppler. COMPARISON: CT abdomen and pelvis from 02/02/2023. FINDINGS: PANCREAS: The operations supervisor 2nd shift describes the pancreas in real-time is being hyperechoic an heterogeneous although this is a difficult assessment tomake with ultrasound. No specific mass or fluid collection is seen. LIVER: The liver is increased in echogenicity. Liver measures 17 cm.No focal hepatic lesions are seen. Antegrade direction of flow shown in themain portal vein. GALLBLADDER: No echogenic gallstones, gallbladder wall thickening, or pericholecystic fluid. No positive sonographic Priest's sign reported. BILIARY: There is no intrahepatic biliary ductal dilatation. The commonbile duct measures 0.4 cm in diameter. RIGHT KIDNEY: Right kidney is 11.6 cm in length. There is nohydronephrosis. The echogenicity is normal. OTHER: No other significant finding. IMPRESSION: No evidence of an acute abnormality. Hepatic steatosis. Taste Tester describes the pancreas as being hyperechoic and heterogeneous although this is a difficult assessment with ultrasound. No specific massor fluid collection is seen. If there is high clinical suspicion forpathology, consider CT imaging. THIS IS AN ELECTRONICALLY VERIFIED FINAL REPORT 05/16/2024 3:31 PM - Electronically signed by Sukumar Miller M.D. CH: [facility] Report ID: [id number] Reading Location: [place] [address] Arnol Joshua MD IMG US PROCEDURES Final Result * Screening Mammogram Bilateral [place] (06/30/2021) Anatomical Region Laterality Modality Breast Bilateral Mammography Arnol Joshua MD IMG MAMMO PROCEDURES Fi nal Result * Dexa Axial and Forearm Bone Density Scan (12/18/2019) Anatomical Region Laterality Modality Wrist, Body N/A Radiographic Makenna ging Result [facility] Jean Kowalski MD IMG DXA PROCEDURES Final Result * Hepatitis C Antibody Reflex Hepatitis C RNA Quantitative PCR (02/06/2017 9:35 AM CDT) Hep C Ab Negative Negative [facility] Blood specimen (specimen) 02/06/2017 9:35 AM CDT 02/06/2017 2:20 PM CDT Result [facility] Arnol Joshua MD LAB MICROBIOLOGY - GENE RAL ORDERABLES Final Result [facility] [id number] Department [place] [address] * COLONOSCOPY (12/25/2012 12:00 AM CDT) Anatomical Region Laterality Modality Other Narrative 12/25/2012 12:00 AM CDT Ordered by an unspecified provider. Procedure Note Provider, MD Jean - 12/25/2012 12:00 AM CDT PROCEDURE REPORT Patient: MARIELA WISE Account: [id number] Room No: : 1960 Patient Type: SDS Attend.: Binh Foley M.D. Admit Date: 12/25/2012 Dict.: Binh Foley M.D. Disch. Date: NAME OF PROCEDURE: Colonoscopy. DATE OF PROCEDURE: 12/25/12. HISTORY: 52-year-old female presents for screening colonoscopy. PHYSICAL EXAMINATION: Obese female. Lungs are clear. Cardiovascularexam is unremarkable. PROCEDURE: Colonoscopy was performed with the Olympus video endoscope.The patient was premedicated by anesthesia. On digital exam, she has grade2 hemorrhoids. We inserted the endoscope and advanced it to the cecum. Thecolon was excellently prepped and visualized. We carefully searched thecolonic mucosa and could find no evidence of inflammatory or neoplastic changeanywhere through the length of the bowel. The patient tolerated the procedurewithout difficulty. POSTOPERATIVE DIAGNOSES: Hemorrhoidal disease, otherwise normal. PLAN: Surveillance in 10 years. Binh Foley M.D. DR/ TD: 12/25/2012 12:56 CC: Arnol Joshua M.D. Authenticated by Binh Foley MD On 12/26/2012 08:12:12 AM Historical Provider ENDOSCOPY PROCEDURES Ale l Result from Last 3 Months or Most Recently Relevant to Health Maintenance Insurance MEDICARE AET[employer] SENIOR SUPPLEMENT MEDICARE AETNA SENIOR SUPPLEMENT HUMAN MEDICARE SUPPLEMENT Advance Directives For more information, please contact: [phone] * Full Code (Latest Code Status on File) Date Activated Date Inactivated Comments 03/11/2022 4:36 PM 03/12/2022 6:04 PM * Full Code Date Activated Date Inactivated Comments 07/24/2021 2:37 PM 07/25/2021 5:18 PM * Full Code Date Activated Date Inactivated Comments 06/04/2019 10:26 AM 06/04/2019 4:21 PM * Full Code Date Activated Date Inactivated Comments 06/04/2019 10:26 AM 06/04/2019 10:26 AM Care Teams Counter Top Maker Relationship Specialty Start Date End Date Arnol Joshua MD PCP - General 01/02/15 Arnol Carroll MD Surgeon Orthopedic Surgery 07/25/21
--- OUTSIDE RECORDS SUMMARY | 2024-07-15 14:07 | XMS_ITS | Referral Summary ---
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 Name Role Phone Arnol Joshua MD Primary Care Provider Arnol Carroll MD Unavailable [phone] Encounters Date Type Department Care Team Description 07/15/2024 Telephone [facility] Medical Group Primary Care at [address] [place] [phone] Arnol Joshua MD Medical Question/Miscellaneous 07/13/2024 Orders Only [facility] Medical [facility] Primary Care at [address] [place] [phone] Arnol Joshua MD Screening mammogram for breast cancer (Primary Dx); Post-menopause 07/13/2024 Telephone [facility] Medical Group Primary Care at [address] [phone] Arnol Joshua MD Medical Records Request 07/13/2024 Results Follow-Up [facility] Medical [facility] Primary Care at [address] [phone] Arnol Joshua MD 07/09/2024 11:00 AM CDT Clinical Support [facility] [address] [place] [address] Advanced Medicine 12th [place] [address] [place] [address] 07/09/2024 9:00 AM CDT Pre-Admission Testing [facility] for Preoperative Assessment and Planning [facility] ([facility]) [address] [place] [id number] Preoperative testing (Primary Dx); Spinal stenosis, lumbar region, with neurogenic claudication; Spondylolisthesis of lumbar region; Pain in other joint; Vitamin D deficiency 06/18/2024 10:30 AM GENERAL STUDIES PROGRAM CHAIR Office Visit [facility] [address] [facility] 6th [place] [address] [place] [address] Numbness and tingling in both hands (Primary Dx) 06/18/2024 9:40 AM GENERAL STUDIES PROGRAM CHAIR Procedure visit [facility] [address] [facility] 6th [place] [address] [place] [address] Numbness and tingling in both hands 06/15/2024 9:58 AM GENERAL STUDIES PROGRAM CHAIR - 06/15/2024 11:59 PM GENERAL STUDIES PROGRAM CHAIR Hospital Encounter [facility] [address] [place] [address] Lumbar spine pain Discharge Disposition: Discharge to home or self care 06/15/2024 10:20 AM GENERAL STUDIES PROGRAM CHAIR Office Visit [facility] [address] [facility] 12th [place] [address] [place] [address] Eddy Sanders MD Lumbar radiculopathy (Primary Dx); Lumbar spine pain; Spinal stenosis of lumbar region, unspecified whether neurogenic claudication present; Spondylolisthesis of lumbar region 05/25/2024 Telephone [facility] Medical Group Primary Care at [address] [place] [address] Arnol Joshua MD 05/24/2024 Orders Only [facility] [address] [place] [address] [place] [address] Clint Andino MD Lumbar radiculopathy (Primary Dx); Spinal stenosis of lumbar region, unspecified whether neurogenic claudication present 05/21/2024 Orders Only [facility] Health Information Management [address] [place] [address] Arnol Joshua MD 05/21/2024 10:14 AM GENERAL STUDIES PROGRAM CHAIR - 05/21/2024 11:59 PM GENERAL STUDIES PROGRAM CHAIR Hospital Encounter [facility] Center [address] [place] [address] Lumbar radiculopathy Discharge Disposition: Discharge to home or self care 05/19/2024 12:55 PM GENERAL STUDIES PROGRAM CHAIR Lab [facility] [id number] [place] [phone] Multiple-type hyperlipidemia 05/19/2024 11:45 AM GENERAL STUDIES PROGRAM CHAIR Office Visit [facility] [address] [place] [address] [address] [place] [address] Bethanie Tavera MD Metabolic dysfunction-associated steatohepatitis (MASH) (Primary Dx); Multiple-type hyperlipidemia; Metabolic syndrome 05/18/2024 Telephone [facility] Medical Group Primary Care at [address] [place] [phone] Arnol Joshua MD Medical Question/Miscellaneous 05/17/2024 Telephone [facility] Medical Group Primary Care at [address] [place] [phone] Arnol Joshua MD 05/14/2024 7:03 AM GENERAL STUDIES PROGRAM CHAIR - 05/14/2024 11:59 PM GENERAL STUDIES PROGRAM CHAIR Hospital Encounter [facility] Center [address] [place] [address] RUQ abdominal pain Discharge Disposition: Discharge to home or self care 05/13/2024 3:30 PM GENERAL STUDIES PROGRAM CHAIR Office Visit [facility] [address] [facility] 6th [place] [address] [place] [phone] Clint Andino MD Lumbar radiculopathy (Primary Dx); Numbness and tingling in both hands from Last 3 Months Allergies Active Allergy Reactions Criticality Noted Date [...] tablet by mouth nightly 100 tablet 06/28/19 25 Active Additional Information Patient taking differently:25 mg [...] 03/17/2023 Assessment & Plan (03/17/2023 11:50 AM GENERAL STUDIES PROGRAM CHAIR): Diet and exercise as the the cornerstone [...] 02/20/2023 Assessment & Plan (02/20/2023 3:34 PM GENERAL STUDIES PROGRAM CHAIR): Given the symptomatic nature we will set [...] (05/25/2019): Added automatically from request for surgery [id number] Problems with swallowing and mastication 020 Overview (05/19/2024): Added automatically from request for surgery [id number] Added automatically from request for surgery [id number] Hx of malignant melanoma 02/22/2019 Cervical radiculopathy [...] (02/21/2022): Added automatically from request for surgery [id number] Primary osteoarthritis of right hip 07/13/2021 08/07/2021 Overview (07/13/2021): Added automatically from request for surgery [id number] Primary osteoarthritis of hips, bilateral 06/18/2021 03/25/2022 [...] stenosis Hypertension 09/14/2014 02/18/2017 Overview (07/19/2016): Hypertension Immunizations Immunization Administration Dates Next Due Influenza, [...] Refused),01/12/2018(Deferred: Patient Refused),01/12/2018(Deferred: Patient Refused),01/12/2018(Deferred: Patient Refused) Movinto Fun (J&J) SARS-CoV-2 Vaccination 06/17/2020 Pratimaa SARS-CoV-2 Monovalen t Vaccination (12+ YRS) 02/26/2021 Td, Unspecified 08/13/2019(Deferred: Allergy) Social History Tobacco Use Types Packs/Day Years [...] on file Legal Sex Female 5:22 PM GENERAL STUDIES PROGRAM CHAIR Gender Identity Not on file Sexual Orientation Straight 05/19/2024 11 :57 AM GENERAL STUDIES PROGRAM CHAIR Last Filed Vital Signs Vital Sign Reading Time Taken Comments Blood Pressure 134/72 07/09/2024 9:15 AM CDT Pulse 64 07/09/2024 9:10 AM CDT Temperature 36.6 C (97.8 F) 03/15/2024 9:03 AM GENERAL STUDIES PROGRAM CHAIR Respiratory Rate 18 05/19/2024 12:0 0 PM GENERAL STUDIES PROGRAM CHAIR Oxygen Saturation 96% 07/09/2024 9:10 AM CDT Inhaled Oxygen Concentration - - Weight 106.4 kg (234 lb 9.1 oz) 07/09/2024 9:10 AM CDT Height 165.1 cm (5' 5 ) 07/09/2024 9:10 AM CDT Body Mass Index 39.03 07/09/2024 9:10 AM CDT Plan of Treatment Upcoming Encounters Date Type Department Care Team (Latest Contact Info) Description 07/21/2024 8:30 AM CDT Hospital Encounter [facility] Operating Room [address] [place] [address] Eddy Sanders MD [address] [place] [address] 07/21/2024 8:30 AM CDT Anesthesia Event [facility] Operating Room [address] [place] [phone] Sukh Calloway MD [address] [place] [address] 07/21/2024 8:30 AM CDT - 07/21/2024 12:05 PM CDT Surgery [facility] Operating Room [address] [place] [phone] Eddy Sanders MD [address] [place] [address] LUMBAR DECOMPRESSION/DISCECT RENETTA - INTERLAMINAR, Left-Sided L4-L5 Unilateral Laminotomy for Bilateral Decompression Scheduled Procedures Name Priority Associated Diagnoses Date/Ti me LUMBAR DECOMPRESSION/DISCECTOMY - INTERLAMINAR Spinal stenosis, lumbar region, with neurogenic claudication Spondylolisthesis of lumbar region 07/21/2024 8:30 AM CDT Goals Goal Patient Goal Type Associated Problems Recent Progress Patient-Stated? Author [facility] Improving( 2:38 PM CDT) Rehana Astudillo, CHARLENE Note: Patient will establish a comfort-function goal and identify the pain level that will allow the patient to perform desired activities and achieve an acceptable quality of life. Medical Devices Implanted Type Area Manager Asset Management Device Identifier Shelf Expiration Date Model / Serial / Lot [employer] [place] 6.5mm 35mm Acetabular Cancellous Screw Bone Sterile 1217-35-500 - Sn/A - [id number] Implanted:Qty: 1 on 07/24/2021 by Arnol Carroll MD at [facility] Right: Hip [employer] 06/12/2031 1217-35-500 / N/A / [id number] [employer] [place] 54mm 36mm Hip Neutral Liner Acetabular Altrx Sterile Latex Free [id number] - Sn/A - [id number] Implanted:Qty: 1 on 07/24/2021 by Arnol Carroll MD at [facility] Right: Hip [employer] 05/14/2026 [id number] / N/A / [id number] [employer] [place] 54mm Sector Hip Shell Acetabular Gription Sterile Latex Free [id number] - Sn/A - [id number] Implanted:Qty: 1 on 07/24/2021 by Arnol Carroll MD at [facility] Right: Hip [employer] 06/12/2031 [id number] / N/A / [id number] [employer] [id number] Actis Collared Hip 03/27 4 Standard Offset Stem Femoral - Sn/A - [id number] Implanted:Qty: 1 on 07/24/2021 by Arnol Carroll MD at [facility] Right: Hip [employer] 12/12/2030 [id number] / N/A / [id number] [employer] [id number] Articul/Doyle 36mm Cementless Hip +8.5mm 12/14 Taper Head Femoral Latex Free - Sn/A - [id number] Implanted:Qty: 1 on 07/24/2021 by Arnol Carroll MD at [facility] Right: Hip [employer] 03/13/2026 1365-36330 / N/A / [id number] [employer] Articul/Doyle 36mm Cementless Hip +8.5mm 12/14 Taper Head Femoral Latex Free 1363-36330 - [id number] Implanted:Qty: 1 on 03/11/2022 by Arnol Carroll MD at [facility] Left: Hip [employer] 01/11/2027 [id number] / / [id number] [employer] [place] 6.5mm 35mm Acetabular Cancellous Screw Bone Sterile 1217-35-500 - [id number] Implanted:Qty: 1 on 03/11/2022 by Arnol Carroll MD at [facility] Left: Hip [employer] 11/12/2031 1217-35-500 / / [id number] [employer] [place] 54mm Sector Hip Shell Acetabular Gription Sterile Latex Free [id number] - [id number] Implanted:Qty: 1 on 03/11/2022 by Arnol Carroll MD at [facility] Left: Hip [employer] 09/12/2031 [id number] / / [id number] [employer] [place] 54mm 36mm Hip Neutral Liner Acetabular Altrx Sterile Latex Free [id number] - [id number] Implanted:Qty: 1 on 03/11/2022 by Arnol Carroll MD at [facility] Left: Hip [employer] 02/11/2027 [id number] / / [id number] [employer] Actis Collared Hip 03/27 4 Standard Offset Stem Femoral [id number] - [id number] Implanted:Qty: 1 on 03/11/2022 by Arnol Carroll MD at [facility] Left: Hip [employer] 11/12/2031 [id number] / / [id number] Procedures Procedure Name Priority Date/Time Associated Diagnosis [...] Read Routine (OP Routine) 06/15/2024 10:10 AM GENERAL STUDIES PROGRAM CHAIR Lumbar spine pain MRI LUMBAR SPINE WO CONTRAST Schedule Routine, Read Routine (OP Routine) 05/21/2024 11:01 AM GENERAL STUDIES PROGRAM CHAIR Lumbar radiculopathy SCAN - RADIOLOGY/IMAGING 05/21/2024 LIPOPROTEIN A (LPA) Routine 05/19/2024 1 :03 PM GENERAL STUDIES PROGRAM CHAIR Multiple-type hyperlipidemia CRP, HIGH SENSITIVITY Routine 05/19/2024 1:03 PM GENERAL STUDIES PROGRAM CHAIR Multiple-type hyperlipidemia US RUQ Schedule Routine, Read Routine (OP Routine) 05/14/2024 7:47 AM GENERAL STUDIES PROGRAM CHAIR RUQ abdominal pain SCREENING MAMMOGRAM BILATERAL W [...] NO CHARGE SEE COMMENT, NO CHARGE S[facility] ARIAS Comment:This test has been i nvalidated Blood 07/09/2024 10:3 5 AM CDT 07/09/2024 10:58 AM CDT Narrative SANCHEZ ARIAS - 07/14/2024 4:40 PM CDT Is this test being ordered in advance for a procedure?->Yes Expected date of procedure:->08/20/24 Has the patient been transfused in the past 3 months?->No Has the patient been in the past 3 months?->No Sukh Calloway MD LAB BLOOD BANK TEST O RDERABLES Final Result [facility] Department of Laboratories [place], [place] [id number] * (ABNORMAL) eGFR (07/09/2024 10:35 AM CDT) [...] of Race in Diagnosing Kidney Disease, JASN 2020). The CKD-EPI equation should not be used for patients with unstable renal function and has not been validated in children and those over 70. Current interpretive data was last reviewed 2021. Blood 07/09/2024 10:3 5 AM CDT 07/09/2024 10:50 AM CDT us Eddy Sanders MD LAB BLOOD ORDERABLES nal Result [facility] [place] [address] * Differential, auto (07/09/2024 10:35 AM CDT) Pathologist [facility] Neutrophil abs 4.3 1.5 - 6.5 K/cumm Imm gran abs 0.0 0.0 - 0.1 K/cumm [facility] Lymphocyte abs 1.9 0.8 - 3.3 K/cumm [facility] Monocyte abs 0.4 0.2 - 0.8 K/cumm [facility] Eosinophil abs 0.3 0.0 - 0.5 K/cumm [facility] Basophil abs 0.1 0.0 - 0.1 K/cumm [facility] Neutrophil pct 62.4 % [facility] Comment: Interpretive Data Percent cell count reference ranges are not reported, since discordance with absolute values may lead to misinterpretation of CBC data. Current Interpretive Data was last revised on 2017. Imm gran pct 0.6 % [facility] Comment: Interpretive Data Percent cell count reference ranges are not reported, since discordance with absolute values may lead to misinterpretation of CBC data. Current Interpretive Data was last revised on 2017. Lymphocyte pct 26.5 % [facility] Comment: Interpretive Data Percent cell count reference ranges are not reported, since discordance with absolute values may lead to misinterpretation of CBC data. Current Interpretive Data was last revised on 2017. Monocyte pct 5.0 % [facility] Comment: Interpretive Data Percent cell count reference ranges are not reported, since discordance with absolute values may lead to misinterpretation of CBC data. Current Interpretive Data was last revised on 2017. Eosinophil pct 4.4 % [facility] Comment: Interpretive Data Percent cell count reference ranges are not reported, since discordance with absolute values may lead to misinterpretation of CBC data. Current Interpretive Data was last revised on 2017. Basophil pct 1.1 % [facility] Comment: Interpretive Data Percent cell count reference ranges are not reported, since discordance with absolute values may lead to misinterpretation of CBC data. Current Interpretive Data was last revised on 2017. Blood 07/09/2024 10:3 5 AM CDT 07/09/2024 10:50 AM CDT Eddy Sanders MD LAB BLOOD ORDERABLES Fi nal Result Performing Organization Address [facility] Co de Phone Number [facility] [place] [address] * B Anti-A1 Lectin (07/09/2024 10:35 AM CDT) RBC phenotyping, A1 lectin ag Negative Blood 07/09/2024 10:3 5 AM CDT 07/09/2024 10:58 AM CDT Eddy Sanders MD LAB BLOOD ORDERABLES Fi nal Result Performing Organization Address [facility] Co de Phone Number [facility] Department [place] [address] * Urinalysis reflex to microscopic and culture Urine, clean voided (07/09/2024 10:35 AM CDT) Color, ur Straw Yellow Clarity, ur Clear Clear [facility] Specific gravity, ur 1.024 1.003 - 1.030 [facility] pH, urine 6.0 [facility] Comment: Interpretive Data U rine pH is affected by diet, medications, systemic acid-base disturbances, and renal tubular function. pH may affect urinary stone formation. For example, urine pH below 6.0 may help reduce the tendency for calcium phosphate stones and pH greater than 6.0 may reduce the tendency for uric acid stone formation. Source: [facility] [place] Current Interpretive Data was last revised on 2017 Protein, ur ql Negative Negative [facility] Glucose, ur ql Negative Negative [facility] Ketones, ur Negative Negative [facility] Bilirubin, ur Negative Negative [facility] Blood, ur Negative Negative [facility] Urobilinogen, ur <2.0 <2.0 mg/dL [facility] Nitrite, ur Negative Negative [facility] Leukocyte esterase, ur Negative Negative [facility] UA reflex comment Reflex conditions for microscopic UA and culture not met. [facility] Urine, clean voided 07/09/2024 10:35 AM CDT 07/09/2024 10:47 AM CDT us Eddy Sanders MD LAB MICROBIOLOGY - GENE [facility] ORDERABLES Final Result [facility] Department [place] [address] * CBC with auto differential (07/09/2024 10:35 AM CDT) WBC 7.0 3.8 - 9.9 K/cumm Hgb 13.2 11.9 - 15.5 g/dL [facility] Hct 40.1 35.6 - 45.5 % [facility] Plt 243 150 - 400 K/cumm [facility] MPV 9.7 9.1 - 12.3 fL [facility] RBC 4.55 3.90 - 5.20 M/cumm [facility] MCV 88.1 81.3 - 96.4 fL [facility] MCH 29.0 27.1 - 33.3 pg [facility] MCHC 32.9 32.3 - 35.7 g/dL [facility] RDW CV 12.2 11.1 - 14.9 % [facility] RDW SD 39.4 35.7 - 48.1 fL [facility] NRBC abs 0.00 0.00 - 0.01 K/cumm [facility] Blood 07/09/2024 10:3 5 AM CDT 07/09/2024 10:50 AM CDT Eddy Sanders MD LAB BLOOD ORDERABLES Fi nal Result [facility] Department [place] [address] * ABO/Rh (07/09/2024 10:35 AM CDT) ABO Rh Asub Positive Comment:This result is cindy ed from APOS result Blood 07/09/2024 10:3 5 AM CDT 07/14/2024 3:39 PM CDT us Eddy Sanders MD LAB BLOOD BANK TEST ORD ERABLES Final Result Performing Organization Address City/[facility]/ZIP Co de Phone Number [facility] Department [place] [address] * Nicotine metabolite screen, urine (07/09/2024 10:35 AM CDT) Nicotine, ur <5.0 <5.0 ng/mL [facility] Cotinine, ur <5.0 <5.0 ng/mL [facility] Anabasine ur <2.0 <2.0 ng/mL [facility] Comment: ADDITIONAL INFORMATION This test was developed and its performance characteristics determined by [facility] in a manner consistent with CLIA requirements. This test has not been cleared or approved by the U.S. Food and Drug Administration. Test Performed by: [facility] Laboratories - [facility] [address] [place] [address] Circulating Process Inspector: Kilo Lim Ph.D.; CLIA# [id number] Nornicotine, ur <2.0 <2.0 ng/mL [facility] Urine 07/09/2024 10:3 5 AM CDT 07/09/2024 11:16 AM CDT Eddy Sanders MD LAB URINE ORDERABLES Fi nal Result Performing Organization Address City/[facility]/ZIP Co de Phone Number [facility] Department [place] [address] [facility] * Vitamin D 25 hydroxy (07/09/2024 10:35 AM CDT) Pathologist [facility] Vitamin D 25-OH 43 30 - 80 ng/mL Blood 07/09/2024 10:3 5 AM CDT 07/09/2024 10:50 AM CDT Eddy Sanders MD LAB BLOOD ORDERABLES Fi nal Result Performing Organization Address City/[facility]/ZIP Co de Phone Number [facility] [place] [address] * aPTT (07/09/2024 10:35 AM CDT) aPTT 37 28 - 38 sec Comment: Interpretive Data Heparin therapeutic range: 66.0 - 100.0 seconds. Range based on correlation with therapeutic heparin activity range of 0.3 - 0.7 Units/mL. Current interpretive data was last revised on 2023. Blood 07/09/2024 10:3 5 AM CDT 07/09/2024 10:51 AM CDT Eddy Sanders MD LAB BLOOD ORDERABLES Fi nal Result Performing Organization Address [facility] Co de Phone Number [facility] [place] [address] * Protime-INR (07/09/2024 10:35 AM CDT) PT 11.0 9.7 - 13.0 sec INR 1.02 0.90 - 1.20 [facility] Comment: Interpretive data Oral anticoagulant therapeutic [...] ORDERABLES Fi nal Result Performing Organization Address [facility] de Phone Number [facility] [place] [address] * (ABNORMAL) Comprehensive metabolic panel (07/09/2024 10:35 AM CDT) Sodium 142 135 - 145 mmol/L Potassium, pl 4.8 3.3 - 4.9 mmol/L [facility] Comment:Hemolyzed; Potassium value may be falsely elevated by as much as 0.3-0.5 mmol/L. Suggest redraw and reanalysis. Chloride 106 97 - 110 mmol/L [facility] CO2 28 22 - 32 mmol/L [facility] Anion gap 8 2 - 15 mmol/L [facility] BUN 26(H) 6 - 25 mg/dL [facility] Creatinine 1.15(H) 0.60 - 1.10 mg/dL [facility] Glucose 100 70 - 199 mg/dL [facility] Comment: Interpretive Data Fasting glucose >/= [...] classification and Diagnosis of Diabetes Diabetes Care 2021; 46: S19-S40. Current interpretive data was last revised 2022. Calcium 10.3 8.5 - 10.3 mg/dL [facility] Bilirubin, total 0.2 0.1 - 1.2 mg/dL [facility] Protein, pl 7.4 6.5 - 8.5 g/dL [facility] Albumin 4.5 3.5 - 5.0 g/dL [facility] Alk phos 83 40 - 130 Units/L [facility] ALT 21 7 - 45 Units/L [facility] AST 26 10 - 45 Units/L [facility] Comment:Hemolyzed; result ma y be falsely elevated Blood 07/09/2024 10:3 5 AM CDT 07/09/2024 10:50 AM CDT us Eddy Sanders MD LAB BLOOD ORDERABLES Fi nal Result [facility] [place] [address] * XR Spine Lumbar 4 or More Views (06/15/2024 10:10 AM GENERAL STUDIES PROGRAM CHAIR) Anatomical Region Laterality Modality L-spine N/A Computed Radiogr aphy 06/15/2024 10:2 4 AM GENERAL STUDIES PROGRAM CHAIR Impressions 06/15/2024 10:24 AM GENERAL STUDIES PROGRAM CHAIR 1. Mild multilevel lumbar degenerative disc disease with adynamic grade 1 anterolisthesis of L4 on L5. Electronically signed by: Tian Barrios D.O. Narrative 06/15/2024 10:24 AM GENERAL STUDIES PROGRAM CHAIR EXAMINATION: XR SPINE LUMBAR 4 OR MORE [...] L5. Electronically signed by: Tian Barrios D.O. us Eddy Sanders MD IMG XR PROCEDURES Final Result * MRI Lumbar Spine WO Contrast (05/21/2024 11:01 AM GENERAL STUDIES PROGRAM CHAIR) Anatomical Region Laterality Modality Spine N/A Magnetic Resonan ce 05/21/2024 1:16 PM GENERAL STUDIES PROGRAM CHAIR Narrative 05/21/2024 1:24 PM GENERAL STUDIES PROGRAM CHAIR EXAM DESCRIPTION: MRI LUMBAR SPINE WO CONTRAST [...] 11/22/2019, 11/29/2016 and 07/27/2014. FINDINGS: SEGMENTATION: 5 ojq-opz-woefeng lumbar type vertebral bodies. ALIGNMENT: Minimal anterolisthesis [...] findings with moderate spinal canal stenosis and vbaf-mpkgoxk-flpw-right lateral recess effacement. Arrc-gh-auvecqsh neural foraminal narrowing, lrnf-pfxgioy-vhhu-right. L5-S1: Disc bulge and superimposed central/left subarticular through left neural foraminal disc protrusion. Bilateral facet arthropathy. No significant spinal canal stenosis. Left lateral recess effacement with disc abutting the descending left S1 nerve root. Minor proximal left and no significant right neural foraminal narrowing. IMPRESSION: 1. Cuul-pq-fxwdpkki lumbar disc degeneration with thickened ligamentum flavum [...] Richardson Galan D.O. AP: AP Report ID: [id number] Reading Location: [id number] Procedure Note Dwayne Galanpit, DO - 05/21/2024 EXAM DESCRIPTION: MRI LUMBAR [...] dated 11/22/2019, 11/29/2016 and07/27/2014. FINDINGS: SEGMENTATION: 5 nms-cod-srgnbgd lumbar type vertebral bodies. ALIGNMENT: Minimal anterolisthesis of L4 on L5 VERTEBRAE: No acute compression fracture in the lumbar spine.Multilevel endplate degenerative changes and marginal spur formation. The L3-W5lwadgos L5-S1 facet joint variable extent STIR hyperintense [...] of findings with moderatespinal canal stenosis and nvrt-dryvein-sznk-right lateral recess effacement. Yorj-qa-lksddshr neural foraminal narrowing, tvtg-egmkkbb-cqhl-right. L5-S1: Disc bulge and superimposed central/left subarticular through left neural foraminal disc protrusion. Bilateral facet arthropathy. No significant spinal canal stenosis. Left lateral recess effacement withdisc abutting the descending left S1 nerve root. Minor proximal left and no significant right neural foraminal narrowing. IMPRESSION: 1. Nxxr-as-kedclksx lumbar disc degeneration with thickened ligamentum flavum [...] Richardson Galan D.O. AP: AP Report ID: [id number] Reading Location: [id number] Clint Andino MD IMG MRI PROCEDURES Final Result * SCAN - RADIOLOGY/IMAGING (05/21/2024) Anatomical Region Laterality Modality Other us Arnol Joshua MD Final R esult * Lipoprotein a (LPa) (05/19/2024 1:03 PM GENERAL STUDIES PROGRAM CHAIR) Lipoprotein A 29 <75 nmol/L [facility] Comment: ADDITIONAL INFORMATION Please notice that Lp(a) values are reported in molar units (nmol/L). These units are recommended by professional society guidelines and expert opinion statements. Measured results and risk thresholds are higher than those generated using mass units (mg/dL). Cardiovascular risk increases starting at 75 nmol/L. Lp(a) >=125 nmol/L is considered a risk enhancing factor by the [place] [employer]. This test has been modified from the continuum of care manager's instructions. Its performance characteristics were determined by [facility] in a manner consistent with CLIA requirements. This test has not been cleared or approved by the U.S. Food and Drug Administration. Test Performed by: [facility] - [address] [address] Circulating Process Inspector: Kilo Lim Ph.D.; CLIA# [id number] Blood 05/19/2024 1:03 PM GENERAL STUDIES PROGRAM CHAIR 05/19/2024 7:05 PM GENERAL STUDIES PROGRAM CHAIR us Bethanie Tavera MD LAB BLOOD ORDERABLES Final Resul t [address] Department [place] [address] [facility] * CRP (cardiac risk) (05/19/2024 1:03 PM GENERAL STUDIES PROGRAM CHAIR) [facility] hsCRP 6.02 mg/L Comment: Interpretive data Adult [...] last revised on 2017. Testing performed by: [facility], [address] [facility] [place]., [address] Blood 05/19/2024 1:03 PM GENERAL STUDIES PROGRAM CHAIR 05/20/2024 10:18 AM GENERAL STUDIES PROGRAM CHAIR us Bethanie Tavera MD LAB BLOOD ORDERABLES Final Resul t [facility] [address] [place] [address] * US RUQ (05/14/2024 7:47 AM GENERAL STUDIES PROGRAM CHAIR) Anatomical Region Laterality Modality Abdomen N/A Ultrasound 05/16/2024 3:29 PM GENERAL STUDIES PROGRAM CHAIR Narrative 05/16/2024 3:31 PM GENERAL STUDIES PROGRAM CHAIR EXAM DESCRIPTION: US RUQ REASON FOR STUDY: RUQ abdominal pain TECHNIQUE: Ultrasound of the right upper quadrant of the abdomen was performed with grayscale and color Doppler. COMPARISON: CT abdomen and pelvis from 02/02/2023. FINDINGS: PANCREAS: [facility] describes the pancreas in real-time is being [...] evidence of an acute abnormality. Hepatic steatosis. [facility] [employer] describes the pancreas as being hyperechoic and heterogeneous although this is a difficult assessment with ultrasound. No specific mass or fluid collection is seen. If there is high clinical suspicion for pathology, consider CT imaging. THIS IS AN ELECTRONICALLY VERIFIED FINAL REPORT 05/16/2024 3:31 PM - Electronically signed by Sukumar Miller M.D. CH: [facility] Report ID: [id number] Reading Location: [id number] Procedure Note Sukumar Miller Jr., MD - 05/16/2024 EXAM DESCRIPTION: US RUQ REASON FOR STUDY: RUQ abdominal pain TECHNIQUE: Ultrasound of the right upper quadrant of the abdomen wasperformed with grayscale and color Doppler. COMPARISON: CT abdomen and pelvis from 02/02/2023. FINDINGS: PANCREAS: [facility] describes the pancreas in real-time is being [...] evidence of an acute abnormality. Hepatic steatosis. [facility] [employer] describes the pancreas as being hyperechoic and heterogeneous although this is a difficult assessment with ultrasound. No specific massor fluid collection is seen. If there is high clinical suspicion forpathology, consider CT imaging. THIS IS AN ELECTRONICALLY VERIFIED FINAL REPORT 05/16/2024 3:31 PM - Electronically signed by Sukumar Miller M.D. CH: [facility] Report ID: [id number] Reading Location: [id number] Arnol Joshua MD [facility] US PROCEDURES Final Result * Screening Mammogram Bilateral [place] (06/30/2021) Anatomical Region Laterality Modality Breast Bilateral Mammography Arnol Joshua MD [facility] MAMMO PROCEDURES Fi nal Result * Dexa Axial and Forearm Bone Density Scan (12/18/2019) Anatomical Region Laterality Modality Wrist, Body N/A Radiographic Makenna ging Historical Provider IMG DXA PROCEDURES Final Result * Hepatitis C Antibody Reflex Hepatitis C RNA Quantitative PCR (02/06/2017 9:35 AM CDT) Hep C Ab Negative Negative [facility] Blood specimen (specimen) 02/06/2017 9:35 AM CDT 02/06/2017 2:20 PM CDT Arnol Joshua MD LAB MICROBIOLOGY - GENE RAL ORDERABLES Final Result [address] [address] Department [place] [address] * COLONOSCOPY (12/25/2012 12:00 AM CDT) Anatomical Region Laterality Modality Other Narrative 12/25/2012 12:00 AM CDT Ordered by an unspecified provider. Procedure Note Provider, MD Jean - 12/25/2012 12:00 AM CDT PROCEDURE REPORT Patient: MARIELA WISE Account: [id number] Room No: : 1960 Patient Type: [facility] Attend.: Binh Foley M.D. Admit Date: 12/25/2012 [...] Surveillance in 10 years. Binh Foley M.D. / TD: 12/25/2012 12:56 CC: Arnol Joshua M.D. Authenticated by Binh Foley MD On 12/26/2012 08:12:12 AM us Historical Provider ENDOSCOPY PROCEDURES Ale l Result from Last 3 Months or Most Recently Relevant to Health Maintenance Insurance MEDICARE AET[employer] SENIOR [facility] MEDICARE AETNA SENIOR SUPPLEMENT [employer] MEDICARE SUPPLEMENT Advance Directives For more information, please contact: [phone] * Full Code (Latest Code Status on File) Date Activated Date Inactivated Comments 03/11/2022 4:36 PM 03/12/2022 6:04 PM * Full Code Date Activated Date Inactivated Comments 07/24/2021 2:37 PM 07/25/2021 5:18 PM * Full Code Date Activated Date Inactivated Comments 06/04/2019 10:26 AM 06/04/2019 4:21 PM * Full Code Date Activated Date Inactivated Comments 06/04/2019 10:26 AM 06/04/2019 10:26 AM Care Teams Cast Iron Drain Pipe Layer Relationship Specialty Start Date End Date Arnol Joshua MD PCP - General 01/02/15 Arnol Carroll MD Surgeon Orthopedic Surgery 07/25/21
--- OUTSIDE RECORDS SUMMARY | 2024-07-15 14:07 | XMS_ITS | Encounter Summary ---
Author Organization [facility] Healthcare Address [address] [place] [id number] Care Team Providers Care Party Plan Sales Director Name Role Phone Arnol Joshua MD Primary Care Provider Arnol Carroll MD Unavailable [phone] Reason for Visit * Reason Onset Date Comments Medical Question/Miscellaneous 07/15/2024 Encounter Details Date Type Department Care Team (Late st Contact Info) Description 07/15/[address] [facility] Medical [facility] Primary Care at [address] [place] [address] Arnol Joshua MD [address] [place] [address] [address] [place] [address] Medical Question/Miscellaneous Social History Tobacco Use Types Packs/Day Years [...] on file Legal Sex Female 5:22 PM STOPPER SETTER Gender Identity Not on file Sexual Orientation Straight 05/19/2024 11 :57 AM STOPPER SETTER documented as of this encounter Miscellaneous Notes * Telephone Encounter - Gloria Mcdowell - 07/15/2024 1:48 PM CDT Medical Question/Miscellaneous Caller???s Concern: Please fax Bone Density test to [facility]. Attn: Randi Does message need to be routed? Yes-Action Needed documented in this encounter Plan of Treatment Upcoming Encounters Date Type Department Care Team (Latest Contact Info) Description 07/21/2024 8:30 AM CDT Hospital Encounter [facility] Operating [address] [place] [address] Eddy Sanders MD [address] [place] [address] 07/21/2024 8:30 AM CDT Anesthesia Event [facility] [address] [place] [address] Sukh Calloway MD [address] [place] [address] 07/21/2024 8:30 AM CDT - 07/21/2024 12:05 PM CDT Surgery [facility] Operating [address] [place] [id number] Eddy Sadners MD [address] [place] [address] LUMBAR DECOMPRESSION/DISCECT RENETTA - INTERLAMINAR, Left-Sided L4-L5 [...] on filedocumented in this encounter Care Teams Party Plan Sales Director Relationship Specialty Start Date End Date Arnol Joshua MD PCP - General 01/02/15 Arnol Carroll MD Surgeon Orthopedic Surgery 07/25/21 documented as of this encounter
--- OUTSIDE RECORDS SUMMARY | 2024-07-15 14:08 | XMS_ITS | Clinical Summary ---
Author Organization [facility] Facility Address [address] [place] [address] Care Team Providers Care Nail Making Machine Setter Name Role Phone Unavailable Primary Care Provider Unavailabl e Medications acetaminophen (TYLENOL) 500 MG tablet Take by mouth every 6 (six) hours if needed for mild pain Active benazepril (LOTENSIN) 40 MG tablet Take 40 mg by mouth 1 (one) time each day Active cholecalciferol (VITAMIN D-3) 25 MCG (1000 UT) capsule Take 1,000 Units by mouth 1 (one) time each day Active cloNIDine (CATAPRES) 0.2 MG tablet Take 0.2 mg by mouth 2 (two) times a day Active furosemide (LASIX) 40 MG tablet Take 40 mg by mouth 1 (one) time each day Active ibuprofen (ADVIL,MOTRIN) 200 MG tablet Take 200 mg by mouth every 6 (six) hours if needed for mild pain Active LORazepam (ATIVAN) 0.5 MG tablet Take 0.5 mg by mouth every 6 (six) hours if needed for anxiety Active metoprolol succinate XL (TOPROL-XL) 100 MG 24 hr tablet Take 100 mg by mouth 1 (one) time each day Do not crush or chew. Active Social History Tobacco Use Types Packs/Day Years Used Date Smoking Tobacco: Never Assessed Comments Unknown Sex and Gender Information Value Date Recorded Sex Assigned at Not on file Legal Sex Female 1:41 PM EST Gender Identity Not on file Sexual Orientation Not on file Plan of Treatment Health Maintenance Due Date Last Done Comments Breast Cancer Screening 1960 Pneumococcal Vaccine: 65+ Ye ars (1 of 2 - PCV) 1965 Pneumococcal Vaccine: Pediat rics (0 to 5 Years) and At-Risk Patients (6 to 64 Years) (1 of 2 - PCV) 1965 Colorectal Cancer Screening: Annual FOBT 2008 Colorectal Cancer Screening: Colonoscopy 2008 Colorectal Cancer Screening: Sigmoidoscopy 2008 Influenza Vaccine (#1) 2023 01/12/2019 Hepatitis B Vaccine Aged Out No longe r eligible based on patient's age to complete this topic Insurance [facility] ([id number])
--- OUTSIDE RECORDS SUMMARY | 2024-07-15 14:08 | XMS_ITS | Clinical Summary ---
Author Organization [facility] Address [address] [place] [address] Phone Care Team Providers Care Chief Credit Officer Name Role Phone Arnol Joshua MD Primary Care Provider Social History Tobacco Use Types Packs/Day Years Used Date Smoking Tobacco: Never Assessed Comments Unknown Sex and Gender Information Value Date Recorded Sex Assigned at Not on file Legal Sex Female 9:47 PM CDT Gender Identity Not on file Sexual Orientation Not on file Plan of Treatment Health Maintenance Due Date Last Done Comments Hepatitis C Virus (HCV) Screening 1960 TdaP Immunization 1960 Colonoscopy 2004 Colorectal Cancer Screening 2004 Cologuard 2009 Immunochemical Fecal Occult Blood 2009 Pneumococcal Immunization (5 0+ years) (1 of 1 - PCV) 2009 Zoster Immunization (1 of 2) 2009 Influenza Immunization (#1) 2023 01/12/2019 SARS-COV-2 Immunization ( season) 2023 02/26/2021, 06/17/2020 Respiratory Syncytial Virus (RSV) Immunization (Adult) (1 - 1-dose 75+ series) 2034 Hepatitis B Immunization Aged Out No longer eligible based on patient's age to complete this topic Meningococcal Immunization (ACWY) Aged Out No longer eligible b ased on patient's age to complete this topic Rotavirus Immunization Aged Out No lo nger eligible based on patient's age to complete this [place] [address] [facility] Care Teams Chief Credit Officer Relationship Specialty Start Date End Date Arnol Joshua MD [address] [place] [address] [place] [address] PCP - General Internal Medicine 04/25/20
--- OUTSIDE RECORDS SUMMARY | 2024-07-15 14:08 | XMS_ITS | Clinical Summary ---
Author Organization [facility] [employer] Address [address] [place] [address] Care Team Providers Care Editing Intern Name Role Phone Arnol Joshua MD Primary Care Provider Source Comments [facility] [employer],non-owned Affiliates and Associated Physician Practices is amultiple site organization consisting of ambulatory clinics and hospital sitesin [place], [place], [place] and [place]. This disclosure is being madepursuant to the Care Everywhere program and may not contain all information available regarding this patient. Last updated 18.[facility] [employer] Allergies Active Allergy Reactions Criticality Noted Date Comments Tetanus Toxoids Medications * Be aware that medications may not be up to date on this document. Alwaysverify current medications with the patient. Medication Sig Dispensed Refills Start Date End Date Status acetaminophen (TYLENOL) 325 MG tablet 1 (one) tablet 09/14/2014 Active Cholecalciferol (VITAMIN D-[address]) 25 MCG (1000 UT) Take 1 (one) tablet by mouth once daily Active amLODIPine (NORVASC) 2.5 MG tablet Take 1 (one) tablet by mouth once daily 03/19/2021 Active carvedilol (COREG) 6.25 MG tablet Take 1 (one) tablet by mouth 2 times daily 09/18/2020 Active benazepril (LOTENSIN) 40 MG tablet TAKE 1 TABLET BY MOUTH ONCE DAILY (STOP AMLODIPINE) 02/26/2021 Active triamterene-hydroCHLO ROthiazide (Maxzide-25) 37.5-25 MG tablet TAKE 1 TABLET BY MOUTH ONCE DAILY TO LOWER BLOOD PRESSURE 07/28/2022 Active QUEtiapine (SEROquel) 25 MG tablet Take 1 (one) tablet by mouth at bedtime 07/07/2023 Active atorvastatin (Lipitor) 20 MG tablet Take 0.5 (one-half) tablet by mouth at bedtime Active Active Problems Problem Noted Date Diagnosed Date Metabolic dysfunction-associated steatohepatitis (MASH) 05/19/2024 H/O lipoma 04/17/2023 Stage 3b chronic kidney disease 03/05/2022 Milia 06/13/2021 Chronic right-sided low back pain without sciati ca 10/18/2020 Sacroiliitis 10/18/2020 Insomnia secondary to chronic pain 10/18/2020 EDUAR (obstructive sleep apnea) 10/06/2020 Other seborrheic dermatitis 07/26/2020 Assessment & Plan (07/27/2020 9:10 AM CDT): - Flaring forehead/eyebrow/glabella. - Discussed diagnosis, typical course, and treatment options - Start ketoconazole 2% cream to affected areas BID PRN - Start hydrocortisone 2.5% cream daily PRN for flares to affected areas AEs of topical steroids reviewed, including increased risk when applied to facial locations Neoplasm of uncertain behavior of skin Assessment & Plan (07/26/2020 2:53 PM CDT): - R anterior shoulder, scaly bothersome area at site of prior biopsy showing DF - Given sx, we performed punch biopsy of lesion. See proc note. Wound care handout provided Multiple benign melanocytic nevi of upper and lower extremities and trunk 07/26/2020 Assessment & Plan (07/27/2020 9:11 AM CDT): - Benign, reassured patient, overall uniform appearance on current clinical exam - Reviewed the importance of sun protection (including sunscreen, wearing hats, minimizing sun exposure) - Reviewed ABCDEs for moles - Photos in chart to monitor Solar lentiginosis 07/26/2020 Assessment & Plan (07/27/2020 9:11 AM CDT): - Benign, reassured patient - Marker of UVR damage with increased risk of skin cancer - Advised routine skin cancer monitoring - Recommend daily OTC sunscreen use with SPF >30, broad spectrum History of nonmelanoma skin cancer 07/26/2020 Assessment & Plan (07/26/2020 3:02 PM CDT): - NER - Rec regular FBSE Ingrown hair 07/26/2020 Assessment & Plan (07/27/2020 9:12 AM CDT): - Chin - Reviewed etiology, prognosis, and treatment options - Pt elects to start otc washes first - Recommend starting OTC SkinMedica AHA/BHA wash or glycolic acid wash a few times a week or daily - If still wants more control, can add tretinoin/Altreeno at next visit Problems with swallowing and mastication 020 Overview (07/26/2020): Added automatically from request for surgery [id number] Added automatically from request for surgery [id number] Cervical radiculopathy 11/06/2018 Lumbar radiculopathy, chronic 11/06/2018 Annular tear of lumbar disc 01/21/2018 DDD (degenerative disc disease), lumbar 01/22/20 18 It band syndrome, right 12/30/2017 Warts 08/05/2017 Multiple nevi 08/05/2017 History of malignant melanoma of skin 08/05/2017 Assessment & Plan (07/26/2020 3:04 PM CDT): - NER or LAD on exam - Pt interested in possible genetic testing for herself, although her sister's test was negative - Information for Linda Madera provided and reviewed that she can meet with her for consult visit to discuss - Rec FBSE in 3 months History of basal cell carcinoma of skin 08/06/19 18 Benign hypertension 07/10/2015 Overview (07/26/2020): Overview: BENIGN HYPERTENSION BENIGN HYPERTENSION Last Assessment & Plan: Recommend DASH diet, heart-healthy lifestyle, exercise. Discussed the risks of hypertension. Actinic keratosis 01/31/2015 Arthralgia of hip 09/14/2014 Overview (07/26/2020): Overview: Hip pain Hip pain Anxiety state 08/28/2013 Overview (07/26/2020): Overview: ANXIETY STATE NOS ANXIETY STATE NOS Multiple-type hyperlipidemia 08/28/2013 Overview (07/26/2020): Overview: MIXED HYPERLIPIDEMIA MIXED HYPERLIPIDEMIA Malignant melanoma of skin 08/28/2013 Overview (07/26/2020): MALIG MELANOMA SKIN NOS MALIG MELANOMA SKIN NOS Menopause present 08/07/2012 Overview (07/26/2020): Menopause Spinal stenosis of lumbar region 01/27/2012 Overview (07/26/2020): Overview: Lumbar spinal stenosis Last Assessment & Plan: Patient prefers no surgical intervention if not absolutely necessary. I recommend physical therapy to eval and treat. Follow up here in 6-8 weeks with absolutely any change in, worsening, or non improvement in condition. Further direction MRI results. Lumbar spinal stenosis Last Assessment & Plan: Patient prefers no surgical intervention if not absolutely necessary. I recommend physical therapy to eval and treat. Follow up here in 6-8 weeks with absolutely any change in, worsening, or non improvement in condition. Further direction MRI results. Irritable bowel syndrome 01/27/2012 Overview (07/26/2020): Overview: IRRITABLE BOWEL SYNDROME IRRITABLE BOWEL SYNDROME Vitamin D deficiency 01/27/2012 Overview (07/26/2020): Overview: Hypovitaminosis D Hypovitaminosis D Other and unspecified ovarian cyst 12/19/2011 Left lower quadrant abdomina l or pelvic swelling, mass, or lump 12/04/2011 Morbid obesity 12/04/2011 Encounters Date Type Department Care Team Description 06/02/2024 2:00 PM EDITOR PRODUCER Office Visit [facility] - Cosmetic Dermatology [address] [place] [address] Elisa Garcia MD Neoplasm of uncertain behavior of skin (Primary Dx); Inflamed seborrheic keratosis; Seborrheic keratoses; Solar lentiginosis; Multiple benign melanocytic nevi of upper and lower extremities and trunk; History of basal cell carcinoma; History of melanoma 06/02/2024 Travel 04/20/2024 Travel from Last 3 Months Family History Medical History Relation Name Comments Diabetes - Type 2 Brother 1 Hypertension Brother 1 Other - Cardiac Brother 1 HEART FAILUR E Psoriasis Brother 1 CAD (Coronary Artery Disease) Father Diabetes - Type 2 Father Hypertension Father Other Father HYPERCHOLESTERO LEMIA Other - Cardiac Father HEART FAILUR E Psoriasis Father Lymphoma Mother Arthritis - Rheumatoid Sister 1 Cancer - Skin, Melanoma Sister 1 Other Sister 1 HYPERCHOLESTERO LEMIA Cancer - Skin, Melanoma Sister 2 Relation Name Status Comments Brother 1 Alive Brother 2 Alive Father Mother Sister 1 Sister 2 Alive Social History Tobacco Use Types Packs/Day Years Used Date Smoking Tobacco: Never Smokeless Tobacco: Never Alcohol Use Standard Drinks/Week Comments Yes 0 (1 standard drink = 0.6 oz pur e alcohol) LESS THAN WEEKLY Sex and Gender Information Value Date Recorded Sex Assigned at Not on file Gender Identity Not on file Sexual Orientation Not on file Last Filed Vital Signs Vital Sign Reading Time Taken Comments Blood Pressure 156/95 06/15/2019 1:16 PM EDITOR PRODUCER Pulse 70 06/15/2019 1:16 PM EDITOR PRODUCER Temperature - - Respiratory Rate - - Oxygen Saturation - - Inhaled Oxygen Concentration - - Weight 104.3 kg (230 lb) 06/15/2019 1:16 PM EDITOR PRODUCER Height 170.2 cm (5' 7 ) 06/15/2019 1:16 PM EDITOR PRODUCER Body Mass Index 36.02 06/15/2019 1:16 PM EDITOR PRODUCER Plan of Treatment Upcoming Encounters Date Type Department Care Team (Late st Contact Info) Description 06/07/2025 10:30 AM EDITOR PRODUCER Office Visit [facility] - Cosmetic Dermatology [address], [address] [place] [address] Elisa Garcia MD [address], [place] [address] Health Maintenance Due Date Last Done Comments BONE DENSITY TESTING 1960 COLOGUARD (AGES 45-75) - COL ON CA SCREENING 1960 COLON MONITORING 1960 COLONOSCOPY - COLON CA SCREENING 1960 CT COLONOGRAPHY - COLON CA SCREENING 1960 Colorectal Cancer Screening 1960 FIT - COLON CA SCREENING 1959 FLEX SIG - COLON CA SCREENING 1960 MEDICARE AWV 12 MONTHS 1960 PAP SMEAR 1960 HIV SCREENING 1974 HEPATITIS C SCREENING 03/21/1977 DTAP/TDAP/TD VACCINES (1 - Tdap) 1978 PNEUMOCOCCAL VACCINE 50+ (1 of 1 - PCV) 2009 ZOSTER VACCINE (1 of 2) 2009 MAMMOGRAM 07/01/2023 06/30/2021, 06/30/2021 COVID-19 VACCINE ( - 2023-2 5 season) 2023 DEPRESSION SCREENING 04/14/2024 Respiratory Syncytial Virus (RSV) Vaccine Pt: or over 60 yrs (1 - 1-dose 75+ series) 2034 INFLUENZA VACCINE Completed 01/07/2024, 03/10/2023 HEPATITIS B VACCINE Aged Out No longe r eligible based on patient's age to complete this topic HIB VACCINE Aged Out No longer eligi ble based on patient's age to complete this topic HPV VACCINE Aged Out No longer eligi ble based on patient's age to complete this topic MENINGOCOCCAL (Group B) VACCINE SHARED DECISION-MAKING Aged Out No longer eligible based on patient's age to complete this topic MENINGOCOCCAL GROUPS A/C/Y/W VACCINE Aged Out No longer eligible b ased on patient's age to complete this topic Procedures Procedure Name Priority Date/Time Associated Diagnosis Comments VA DESTRUCT BENIGN LESION, 1-14 Routine 06/02/2024 3:31 PM EDITOR PRODUCER Inflamed seborrheic keratosis VA TANGNTL BX SKIN SINGLE LES Routine 06/02/2024 3:31 PM EDITOR PRODUCER Neoplasm of uncertain behavior of skin DERMATOPATHOLOGY Routine 06/02/2024 12:0 0 AM EDITOR PRODUCER Neoplasm of uncertain behavior of skin from Last 3 Months Results * VA DESTRUCT BENIGN LESION, 1-14 (06/02/2024 3:31 PM EDITOR PRODUCER) Elisa Ortiz MD - 06/02/2024 3:31 PM EDITOR PRODUCER Elisa Garcia MD 06/02/2024 3:31 PM Diagnosis and treatment options discussed. Liquid nitrogen was applied to 1 ISK lesions at left elbow for 6-8 seconds. Rounds 1. The expected reaction ranges from minimal changes to scabbing, crust, blistering, or swelling, which can be painful. Color changes different from the surrounding skin are expected and can be either body team member or darker--this can sometimes take a long time to fully resolve, and in some cases, it may not ever fully look like the surrounding skin--there is a delicate balance between freezing hard enough for efficacy and such side effects that is different for different people. There is a small risk of infection similar to any time there is a break in the skin. Blister/wound care discussed, handout given. Return if lesions fail to fully resolve. Verbal consent obtained prior to any procedures being done. Elisa Garcia MD 3:31 PM, 06/02/2024 Elisa Garcia MD PROCEDURE/GLADYS R SURGICAL ORDERABLES * VA TANGNTL BX SKIN SINGLE LES (06/02/2024 3:31 PM EDITOR PRODUCER) Elisa Ortiz MD - 06/02/2024 3:31 PM EDITOR PRODUCER Elisa Garcia MD 06/02/2024 3:31 PM Shave biopsy Risks, benefits and alternatives to shave biopsy were discussed with the patient. Pt understands the possibility for the following: Bleeding, infection, scar (100% chance), color chances, the possibility of non-diagnostic reading and the potential need for further testing or treatment, including surgical. Stated clearly the size of the specimen and the need to obtain adequate tissue for the most accurate path reading and that all specimens are sent to path. Pt accepts all of above, verbal consent was obtained. Location: left mid back Skin prep: Alcohol Anesthesia: 1% lidocaine with epinephrine Hemostasis: Aluminum chloride Dressing and wound care discussed. Elisa Garcia MD 3:31 PM, 06/02/2024 Elisa Garcia MD PROCEDURE/GLADYS R SURGICAL ORDERABLES * DERMATOPATHOLOGY (06/02/2024 12:00 AM EDITOR PRODUCER) Case Report Dermatopathology Report Case: [id number] Authorizing Provider: Elisa Garcia, Collected: 06/02/2024 12:00 AM Ordering Location: [facility] - Received: 06/03/2024 10:06 AM Cosmetic Dermatology Pathologist: Elvira Ramos MD Specimen: Skin, left mid back 2:41 PM [facility] DERMATOPATHOLOGY LABORATORY Final Diagnosis Specimen A. SKIN, left mid back: COMPOUND NEVUS WITH CONGENITAL FEATURES (D22.5) 2:41 PM [facility] DERMATOPATHOLOGY LABORATORY Clinical History Irritated Nevus vs R/O Atypia 2:41 PM EDITOR PRODUCER DERMATOPATHOLOGY LABORATORY Gross Description Specimen A: Received is one formalin filled container labeled with the patient's name and designated left mid back. The specimen consists of a shave biopsy measuring 6x5x1 mm. Jar 0. 2:41 PM [facility] DERMATOPATHOLOGY LABORATORY Microscopic Description Specimen A. SKIN, left mid back: There are nests of melanocytes at the dermal-epidermal junction and within the dermis. Some melanocytes are splayed between collagen bundles and are localized around adnexal structures. 2:41 PM EDITOR PRODUCER DERMATOPATHOLOGY LABORATORY Disclaimer An external and internal positive and negative controls are appropriate for the histochemical, immunohistochemical and immunofluorescence stain(s) in this case (if any), except where stated explicitly. The performance characteristics of the stain(s) cited in this report were developed and its performance characteristic determined by the Dermatopathology Laboratory at [facility], directed by Dr. Addison Ramos. These tests need not be, and therefore are not, approved by the [place] Food and Drug Administration. The tests are used for clinical purposes. Billing Codes Specimen Charges Stain Charges 25623 1 5 2:41 PM EDITOR PRODUCER DERMATOPATHOLOGY LABORATORY Embedded Images 5 2:41 PM EDITOR PRODUCER DERMATOPATHOLOGY LABORATORY Pathology/Cytolog y TISSUE SPECIMEN FROM SKIN / Unknown 06/02/2024 06/03/2024 10:06 AM EDITOR PRODUCER Elisa Garcia MD LAB - PATHOLOG Y/CYTOLOGY ORDERABLES Performing Organization Address City/State/[facility] Co de Phone Number DERMATOPATHOLOGY LABORATORY [facility] - Department of Dermatology [facility] [address] [place] [address], [address] [phone] from Last 3 Months Care Teams Editing Intern Relationship Specialty Start Date End Date Arnol Joshua MD [address] [facility] [address] [place] [address] PCP - General Internal Medicine 01/17/17
== END 2024-07-15 13:43 | disposition home or self-care (01) ==
PROVIDERS: PCP Internal Medicine; Visit Provider Internal Medicine
DX: Z12.31 Encounter for screening mammogram for malignant neoplasm of breast (principal); Z78.0 Asymptomatic menopausal state
CPT/HCPCS: 77063; 77067; 77080